=== PATIENT | male | born 1955 | race Caucasian/White ===

== ENCOUNTER → 2023-03-23 06:38 | Day surgery (SDC) | payer OTHER, SELFPAY ==
[2023-03-23 07:53] VITALS: BMI 41.2
== END | disposition home or self-care (01) ==
LOC: CATH 06:38
PROVIDERS: ATTENDING PHYSICIAN Internal Medicine Cardiovascular Disease; FAMILY PHYSICIAN Family Medicine; OTHER PHYSICIAN Internal Medicine Cardiovascular Disease
DX: I08.3 Combined rheumatic disorders of mitral, aortic and tricuspid valves (principal); Z95.3 Presence of xenogenic heart valve; I10 Essential (primary) hypertension; E78.5 Hyperlipidemia, unspecified; K21.9 Gastro-esophageal reflux disease without esophagitis; G47.33 Obstructive sleep apnea (adult) (pediatric); R06.09 Other forms of dyspnea; Z79.82 Long term (current) use of aspirin; Z79.84 Long term (current) use of oral hypoglycemic drugs
CPT/HCPCS: 93312; 93320; 93325

== ENCOUNTER → 2023-04-29 08:55 | Outpatient (REF) | payer OTHER, SELFPAY ==
[2023-04-29 09:33] LABS: Blood Urea Nitrogen 27 mg/dl (9-20); Calcium 9.2 mg/dl (8.4-10.2); Carbon Dioxide 32 mmol/L (22-30); Chloride 103 mmol/L (98-107); Glucose 108 mg/dl (70-99); Potassium 4.5 mmol/L (3.5-5.1); Sodium 140 mmol/L (135-145); eGFR > 60.00
== END ==
LOC: REG 08:55
PROVIDERS: ATTENDING PHYSICIAN Internal Medicine Cardiovascular Disease; FAMILY PHYSICIAN Family Medicine
DX: I10 Essential (primary) hypertension (principal)
CPT/HCPCS: 36415; 80048

== ENCOUNTER → 2023-06-29 16:37 | Outpatient (REF) | payer OTHER, SELFPAY ==
[2023-06-29 18:16] LABS: Blood Urea Nitrogen 34 mg/dl (9-20); Carbon Dioxide 31 mmol/L (22-30); Chloride 100 mmol/L (98-107); Glucose 77 mg/dl (70-99); Sodium 135 mmol/L (135-145); eGFR > 60.00
[2023-06-29 18:39] LABS: NT-proBNP 928 pg/ml
== END ==
LOC: REG 16:37
PROVIDERS: ATTENDING PHYSICIAN Internal Medicine Cardiovascular Disease; FAMILY PHYSICIAN Family Medicine
DX: I50.32 Chronic diastolic (congestive) heart failure (principal)
CPT/HCPCS: 36415; 80048; 83880

== ENCOUNTER 2023-07-07 09:29 | Inpatient (IN) | payer OTHER, SELFPAY ==
[2023-07-07] VITALS (17 sets, daily range): BP systolic 89–170; BP diastolic 50–87; PULSE 2–68; BMI 42.6
[2023-07-07 06:47] LABS: Hematocrit 46.4 % (39.0-52.0); Hemoglobin 15.7 g/dL (13.0-18.0); Mean Corp Hgb Conc. 33.8 g/dL (33.0-37.0); Mean Corpuscular Hgb 32.4 pg (27.0-31.0); Mean Corpuscular Volume 95.7 fL (80.0-94.0); Mean Platelet Volume 9.8 fL (7.4-10.4); Platelet Count 195 10^3/uL (130-400); Red Blood Cell Count 4.85 10^6/uL (4.70-6.10); Red Cell Dist. Width 13.4 % (11.5-14.5); White Blood Cell Count 7.4 10^3/uL (4.8-10.8)
[2023-07-07 06:50] LABS: Glucose - Point of Care 120 mg/dl (70-99)
[2023-07-07 07:00] LABS: ALT (SGPT) 42 U/L (0-50); AST (SGOT) 41 U/L (17-59); Albumin 4.6 g/dl (3.5-5.0); Alkaline Phosphatase 77 U/L (38-126); Blood Urea Nitrogen 45 mg/dl (9-20); Calcium 9.1 mg/dl (8.4-10.2); Carbon Dioxide 29 mmol/L (22-30); Chloride 100 mmol/L (98-107); Estimated Creatinine Clearance 47 ml/min; Glucose 118 mg/dl (70-99); Potassium 4.5 mmol/L (3.5-5.1); Sodium 138 mmol/L (135-145); Total Bilirubin 0.9 mg/dl (0.2-1.3); Total Protein 7.9 g/dl (6.3-8.2); eGFR > 60.00
[2023-07-07] MEDS: ASPIRIN 325 MG PO (07:21)
[2023-07-07] MEDS: NSS 359 ML IV (07:21)
--- NOTE | 2023-07-07 09:55 | PTCARENOTE ---
patient arrived from mineral ore processing labourer, right radial R band intact,distal pulse present. pacer pads remain on.IVF infusing as ordered. patient on monitor NSR,VSS.voices no c/o CP,SOB,dizziness. patient taken off o2, o2 sat 94%,bilat.LE +3 edema,able to
palpate pulses. oriented to room and surroundings.
[2023-07-07] MEDS: TOPROL XL 50 MG PO (10:40)
[2023-07-07] MEDS: TOPROL XL 25 MG PO (10:41)
[2023-07-07] MEDS: ZESTRIL 40 MG PO (10:41)
[2023-07-07] MEDS: LASIX 80 MG IV (10:42)
[2023-07-07] MEDS: FARXIGA 10 MG PO (10:45)
--- NOTE | 2023-07-07 12:12 | HPS.HSE ---
Family Physician
-
Family Physician: Solomon Key
Chief Complaint
-
Observation post elective heart catheterization
History of Present Illness
Patient is 68-year-old male with past medical history of chronic diastolic congestive heart failure, history of bicuspid valve/severe AI s/p bioprosthetic AVR, history of moderate MR status post mitral valve ring, history of effusion, obesity, ANTONIA
on BiPAP, chronic right bundle branch block, essential hypertension, hyperlipidemia, COPD was transferred to IVU for observation and diuresis over next 48 hours post elective heart catheterization. Patient have worsening stenosis of bioprosthetic
aortic valve and moderate to severe mitral stenosis and undergoing evaluation by cardiothoracic surgery for further intervention. As part of workup patient was brought in for acute left heart catheterization, procedure during measurement of LV
pressure patient had a brief episode of asystole causing procedure to be aborted. Patient ventricular pressure was not able to be measured although clinically there is concern of patient being volume overloaded. Hospitalist service were involved
for further help.
During my visit patient sitting comfortably in chair, on oxygen 2 L per nasal cannula, patient does not use oxygen at home. Patient complains of exertional shortness of breath although not have worsened from baseline. Patient was able to use
treadmill at speed of half a mile per hour for 10 minutes day before. Denies of having any episode of chest tightness/chest pain/dizziness/palpitation. Patient compliant with diet restriction and try to elevate legs in bed. Patient dry weight
trends around 260 pound and weight was noted to be 263 pounds today.
Denies of having any other abdominal/ complaints
Medical History
Past Medical History
Past Medical History: Reports Other
Additional Past Medical History:
chronic diastolic congestive heart failure, history of bicuspid valve/severe AI s/p bioprosthetic AVR, history of moderate MR status post mitral valve ring, history of effusion, obesity, ANTONIA on BiPAP, chronic right bundle branch block, essential
hypertension, hyperlipidemia, COPD
Past Surgical History: Reports Other
Social History
Tobacco: Non-smoker
Alcohol: None
Living: With Family
Family History
Family History: Not pertinent
Allergies / Home Medications
Allergies reflects when Allergies were last updated in [employer]
Home Medications with original date entered in [employer]
Allergy/Medication List:
Allergies
Allergy/AdvReac Type Severity Reaction Status Date / Time
banana Allergy Nausea Verified 07/07/23 06:18
cat dander Allergy Unknown Verified 07/07/23 06:18
horse dander Allergy Unknown Verified 07/07/23 06:18
tree and shrub pollen Allergy Unknown Verified 07/07/23 06:18
Environmental Allergy Itching Uncoded 07/07/23 06:24
GREEN GRASSY FOODS Allergy Unknown Uncoded 07/07/23 06:24
Home Medications
Al hyd-Mg tr-alg ac-sod bicarb 80 mg-14.2 mg chewable tablet (Gaviscon) 1 tab PO QIDPRN PRN gerd 02/22/23
albuterol sulfate 90 mcg/actuation aerosol inhaler (ProAir HFA) 2 puff inhalation R QIDPRN PRN sob 02/22/23
aspirin 325 mg tablet 325 mg PO DAILY 02/22/23
atorvastatin 10 mg tablet (Lipitor) 10 mg PO DAILY 02/22/23
calcium carbonate (Tums) 200 mg PO BIDPRN PRN gerd 02/22/23
fluticasone 250 mcg-salmeterol 50 mcg/dose blistr powdr for inhalation (Wixela Inhub) 1 inh inhalation R BID 02/22/23
pantoprazole 40 mg tablet,delayed release (Protonix) 40 mg PO HS 02/22/23
vitamins A,C,O-etyz-zmofgh 2,148 mcg-113 mg-45 mg-17.4 mg tablet (PreserVision AREDS) 1 tab PO BID 02/22/23
dapagliflozin propanediol 10 mg tablet (Farxiga) 10 mg PO DAILY Fluid retention/Swelling 30 days #30 tabs 02/27/23
lisinopril 40 mg tablet 40 mg PO DAILY Blood pressure #0 tabs 02/27/23
furosemide 80 mg tablet 80 mg PO QPM Fluid retention/Swelling 03/23/23
metoprolol succinate 50 mg tablet,extended release 24 hr 75 mg PO DAILY Blood pressure 03/23/23
multivitamin 1 tab PO DAILY 03/23/23
Review of Systems
-
A 12 point ROS was completed and negative except as noted: Yes
Physical Exam
Vital Signs
Vital Signs
Temp Pulse Resp BP Pulse Ox
97.7 F 84 22 100/61 88
07/07/23 11:22 07/07/23 11:30 07/07/23 11:22 07/07/23 11:30 07/07/23 11:22
Physical Exam
General: No Apparent Distress and Morbidly Obese
HEENT: Atraumatic and Oxygen
Respiratory: Clear
Cardiac: S1/S2 and Regular Rhythm; No Murmur or Rub
GI: Soft, Non Tender, Non Distended and Normal Bowel Sounds; No Organomegaly
Musculoskeletal: No Clubbing, No Cyanosis, Edema, Left Lower Extremity and Edema, Right Lower Extremity
Skin: No Rash
Neuro: Awake, Alert, Oriented and Nonfocal/grossly intact
Laboratory Results
-
07/07/23 06:41
07/07/23 06:41
Laboratory Results
Total Bilirubin 0.9 mg/dl (0.2-1.3) 07/07/23 06:41
AST 41 U/L (17-59) 07/07/23 06:41
ALT 42 U/L (0-50) 07/07/23 06:41
Alkaline Phosphatase 77 U/L (38-126) 07/07/23 06:41
Data Reviewed
-
Lab Data: Labs Reviewed by me, Discussed with Physician and Discussed with Patient
Impression/Plan
-
1.Acute on chronic diastolic congestive heart failure
Acute hypoxic respite insufficiency
-Dry weight to 260 pound, today weight 263lb , significant swelling lower extremity and likely dry weight much lower than 260 pound
-Lung examination relatively clear, with history of effusion checking chest x-ray
-Currently on 2 L oxygen through nasal cannula, wean off as possible
-Maintain on IV Lasix 80 mg twice daily, follow weight and creatinine
-Maintained on aspirin/statin/Jardiance/lisinopril
2. Brief asystole episode
-happened Intracath, discussed with cat cracker operator and recommended to start beta-shyla tomorrow morning
-monitor on telemetry
3. history of bicuspid valve/severe AI s/p bioprosthetic AVR
history of moderate MR status post mitral valve ring
Mod-sev MS
-Following up with cardiothoracic surgery outpatient for evaluation
-Intervention cardiology will discuss with CTS
4. history of pleural effusion
-f/u cxr report
5.ANTONIA on BiPAP
-Continue nighttime BiPAP with settings of 25/19
chronic right bundle branch block
essential hypertension
hyperlipidemia
COPD - no signs of flare up
DVTPPX - heparin subq
Full code
Total time spent : 76 mins
I personally saw and examined the patient.
I have reviewed all diagnostic interpretations and treatment plans as written.
Time includes patient management by me, time spent at the patients bedside, time to review lab and imaging results, discussing patient care, documentation in the medical record, and time spent with the family or caregiver and discussing care plan
with RN/Consultants.
--- NOTE | 2023-07-07 12:17 | CM ---
Reviewed chart. Met with Mr. Esteves to review discharge plans. He states prior to admission he resides alone in a two story home with three steps to enter. He states he has a full flight of steps to get to bedroom/full bathroom. He states she
has a powder room on the first floor. He states prior to admission he was independent with ambulation and adls. He states he has a bi-pap machine at home and no other DME in the home. He states he has a prescription plan and uses [facility].
We reviewed [facility]. At this time he is declining [facility]. Medical work-up in progress. The discharge plan is to return home when medically stable.
[2023-07-07] MEDS: LASIX 50 IV (14:21)
--- NOTE | 2023-07-07 14:29 | PTCARENOTE ---
started IV Lasix drip at 10mg/hr via left ant,infusing without difficulties. patient sent for chest xray,panelipse, U/S of carotids and CTchest.
--- NOTE | 2023-07-07 14:30 | CONSULT.CT ---
Consultation
-
Date/Time Consultation Requested: 07/07/23 1400
Date/Time Consultation Performed: 07/07/23 1410
Requesting Provider: Paulino BETH
Performing Provider: Serafin Reynoso MD
Reason for Consultation: Redo Valve and CABG
Patient History
Physicians
Family Physician: Shahid
Outpatient Printed Circuit Board Pcb Designer: Dr. Susanna Thurman
Inpatient Printed Circuit Board Pcb Designer: Meaghan
History of Present Illness
68 y/o male with significant pmhx for aortic valve replacement and mitral [place] [address] Gregory presented to [facility] today for a elective left heart cath. His left heart cath revealed worsening stenosis of the aortic valve and
severe mitral stenosis. During the left heart cath patient had a brief episode of asystole. Patient was initially supposed to see Dr. Reynoso in the office on Monday, however, due to was progressing valvular stenosis patient was admitted.
Prior to this admission patient was complaining of some exertional shortness of breath. He underwent a transesophageal echocardiogram in March 2023 which showed worsening stenosis of his valves. Patient normally follows Dr. Susanna Thurman.
Past Medical History
Past Medical History: Asthma, HTN, Hypercholesterolemia, SOB, Valvular Disease and Other
PVD
Pre-Dm
Macular degeneration
Past Surgical History
AVR and MVrepair with Dr. Gregory in 2012
cataracts
Dental History
last dental visit 8 months ago
Family History
Mother: at Age
Father: at Age (55)
Family Medical History: CAD
Social History
Alcohol: Occasional
Drug: None
Tobacco: Non-Smoker
Personal: Single
Living: Alone
Employment: Employed
Allergies
Allergy/AdvReac Type Severity Reaction Status Date / Time
banana Allergy Nausea Verified 07/07/23 06:18
cat dander Allergy Unknown Verified 07/07/23 06:18
horse dander Allergy Unknown Verified 07/07/23 06:18
tree and shrub pollen Allergy Unknown Verified 07/07/23 06:18
Environmental Allergy Itching Uncoded 07/07/23 06:24
GREEN GRASSY FOODS Allergy Unknown Uncoded 07/07/23 06:24
Home Medications
�Medication �Instructions �Recorded �Confirmed �Type
Al hyd-Mg tr-alg ac-sod bicarb 80 1 tab PO QIDPRN PRN gerd 02/22/23 07/07/23 History
mg-14.2 mg chewable tablet
(Gaviscon)
albuterol sulfate 90 mcg/actuation 2 puff inhalation R QIDPRN PRN sob 02/22/23 07/07/23 History
aerosol inhaler (ProAir HFA)
aspirin 325 mg tablet 325 mg PO DAILY 02/22/23 07/07/23 History
atorvastatin 10 mg tablet (Lipitor) 10 mg PO DAILY 02/22/23 07/07/23 History
calcium carbonate (Tums) 200 mg PO BIDPRN PRN gerd 02/22/23 07/07/23 History
fluticasone 250 mcg-salmeterol 50 1 inh inhalation R BID 02/22/23 07/07/23 History
mcg/dose blistr powdr for
inhalation (Wixela Inhub)
pantoprazole 40 mg tablet,delayed 40 mg PO HS 02/22/23 07/07/23 History
release (Protonix)
vitamins A,C,C-qmym-brelnw 2,148 1 tab PO BID 02/22/23 07/07/23 History
mcg-113 mg-45 mg-17.4 mg tablet
(PreserVision AREDS)
dapagliflozin propanediol 10 mg 10 mg PO DAILY Fluid 02/27/23 07/07/23 Rx
tablet (Farxiga) retention/Swelling 30 days #30 tabs
lisinopril 40 mg tablet 40 mg PO DAILY Blood pressure #0 02/27/23 07/07/23 Rx
tabs
furosemide 80 mg tablet 80 mg PO QPM Fluid 03/23/23 07/07/23 History
retention/Swelling
metoprolol succinate 50 mg 75 mg PO DAILY Blood pressure 03/23/23 07/07/23 History
tablet,extended release 24 hr
multivitamin 1 tab PO DAILY 03/23/23 07/07/23 History
Review of Systems
-
History Source: Patient
General: Reports Weight Gain and Fatigue
HEENT: Reports No Symptoms
Respiratory: Reports SOB
Cardiac: Reports Known Vascular Disease
Abdomen/GI: Reports No Symptoms
: Reports Frequency
Musculoskeletal: Reports No Symptoms
Skin: Reports No Symptoms
Neurological: Reports No Symptoms
Vascular: Reports No Symptoms
Physical Exam
Vital Signs
Temp 97.7 F 07/07/23 11:22
Temp route: Oral 07/07/23 11:22
Pulse 79 07/07/23 12:19
Rhythm: Normal sinus rhythm 07/07/23 10:20
Resp Rate 22 07/07/23 11:22
Blood pressure 96/60 07/07/23 12:19
Blood pressure extremity used: Left upper arm 07/07/23 11:22
Position: Sitting 07/07/23 11:22
MAP (cuff-Elidia Monitor) 69 07/07/23 12:19
SaO2 88 07/07/23 11:22
Oxygen Mode of Delivery Room air 07/07/23 11:22
Can the patient verbally communicate their pain? Yes 07/07/23 10:20
Actual Weight 119.7 kg 07/07/23 06:24
Body Mass Index (BMI) 42.6 07/07/23 06:24
Labs
07/07/23 06:41
Exam
General: Well Developed and Well Nourished
HEENT: Normocephalic
Respiratory: Wheezes and Crackles
Cardiac: S1/S2 and Murmur
GI: Distended and Other (obese)
Rectal: Deferred by Provider
Skin: Warm and Dry
Neuro: AO x 3 and No Motor Deficits
Extremities: Lower Level Edema and Other (darken LE skin)
Lymph: No Lymphadenopathy
Psych: Calm
Assessment / Plan
-
68-year-old male with past medical history above presented for an elective cath. Now being admitted for pre-op optimization.
#CAD
-Patient's case will be discussed with attending physician; tentative date is Tuesday July 11, [address] Reynoso
-Routine preoperative cardiothoracic surgery orders will be initiated.
-STS risk stratification score will be calculated after preoperative testing is complete
#Aortic and Mitral valve stenosis
- Continue diureses
- no repeat echo needed
- repeat CTA of C/A/P pending for monday
--- NOTE | 2023-07-07 15:03 | ITS.CL.CATH ---
Underwriting Clerks Supervisor - Catheterization
Cardiac Catheterization
Procedure Report:
LEFT AND RIGHT HEART CATHETERIZATION
Date of Procedure: July 07, 2023
Referring: Susanna Thurman MD
PROCEDURES:
1. Left heart catheterization, coronary angiogram.
2. Right heart catheterization.
3. Ultrasound-guided access
INDICATION: Patient is a 68-year-old gentleman with past medical history of bicuspid aortic stenosis status post bioprosthetic AVR and mitral valve repair in 2012, hypertension, hyperlipidemia, morbid obesity, asthma, macular degeneration, ANTONIA,
COPD, hepatic steatosis, chronic heart failure with preserved ejection fraction, coronary artery disease, type 2 diabetes mellitus who presents today for left and right heart catheterization in the setting of moderate to severe bioprosthetic aortic
stenosis and moderate to severe mitral stenosis with up titration of diuretics as an outpatient with ongoing dyspnea on exertion
ACCESS:
1. Right radial artery, 6 Armenian sheath, under ultrasound guidance.
2. Right brachial vein, 6 Armenian sheath, under ultrasound guidance
HEMODYNAMICS : (mmHg)
RA (m) : 29
RV (s/d,m) : 75/25, 29
PA (s/d, m) : 78/47, 60
PCWP (m) : 39
PA saturation: 62.2% on room air
AO saturation: 87.3% on room air
RA saturation: 63.3% on room air
Cardiac Output : 5.62 L/min
Cardiac Index : 2.5 L/min/m-2
Systemic vascular resistance: 939 dsc^(-5)
Pulmonary vascular resistance: 3.73 hayden unit
RADIATION SUMMARY: Fluoro Time (min): 14.5, Dose (mGy): 831, DAP (Gy.cm2) : 62
AO (s/d) : 116/79
Of note, the right coronary artery diagnostic catheter happened to fall into the LV and while flushing the catheter to get LV pressure, patient had sudden complete heart block with a string of P waves and very rare ventricular escape's. He broke
out of it after a few seconds.
CORONARY FINDINGS
DOMINANCE: Right
LEFT MAIN: The left main is cloacal in origin with essentially separate ostia for the LAD and the left circumflex artery.
LEFT ANTERIOR DESCENDING: The left anterior descending artery is a medium to large caliber vessel which gives rise to 1 major diagonal branch. There is an eccentric 80% stenosis in the mid LAD
CIRCUMFLEX: The left circumflex artery is a large-caliber vessel which gives rise to 2 major obtuse marginal branches. There is mild diffuse atherosclerotic plaque
RIGHT CORONARY ARTERY: The right coronary artery is a medium caliber, dominant vessel which gives rise to the right posterior descending artery and the right posterolateral system. There is mild pressure dampening and ventricularization upon
engagement with a 6 Armenian 3 DRC diagnostic catheter after failing with a JR4 diagnostic catheter. There is a eccentric 70% ostial RCA stenosis with diffuse tubular up to 50% stenosis in the mid RCA.
SEDATION: 38 minutes of procedural sedation was utilized. An independent medical collections was present to assist with and help manage the patient's level of consciousness and physiologic status.
RADIATION SUMMARY: Fluoro Time (min): 14.5, Dose (mGy): 831, DAP (Gy.cm2) : 61.1
Closure Device: Vascular annular right radial artery, 11 cc of air
CONCLUSIONS
1. Significantly elevated right and left-sided filling pressures with normal cardiac output and normal systemic vascular resistance. Severe pulmonary hypertension is noted.
2. Left main appears to be cloacal in origin with separate ostium for the LAD and left circumflex arteries. Eccentric 80% stenosis in the mid LAD.
3. Eccentric 70% ostial RCA stenosis with diffuse tubular up to 50% stenosis in the mid RCA.
4. Of note, the right coronary artery diagnostic catheter happened to fall into the LV and while flushing the catheter to get LV pressure, patient had sudden complete heart block in setting of baseline right bundle branch block with a string of P
waves and very rare ventricular escape's. He broke out of it after a few seconds.
RECOMMENDATIONS
1. Would hold his beta-shyla for the next 24 hours and if continues to remain stable without evidence of any recurrent heart block, with plan to resume it.
2. Aggressive IV diuresis for the next [address] surgery consult for possible preappointment in double valve replacement and consideration for two-vessel CABG with bypasses to LAD and distal RCA. Discussed with Dr. Jonnie Reynoso.
Copy to: Susanna Thurman MD
Francine Clark MD, FAC, [facility]
--- NOTE | 2023-07-07 16:18 | CM ---
Reviewed chart. Met with Mr. Hassan to review discharge plans. Prior to admission he resides alone in a two story home with three steps to enter. He states he has a full flight of steps to get to bedroom/full bathroom. He has a powder room on
the first floor. He states prior to admission he was independent with ambulation and adls. He states he has a bi-pap machine at home and no other DME in the home. He has a prescription plan and uses [facility]. He states his family is
supportive and will be able to assist if needed. His brother Jovanny resides close by. His sister resides in [place] and does come up to see him. Medical work-up in progress. The discharge plan is to return home with family support and a home
visit by the Cardiothoracic Transitional Care Nurse when medically stable.
We reviewed pre-op and post-op routines. We briefly reviewed the shower instructions. We also reviewed restrictions including sternal precautions and driving restrictions. We also discussed a home visit by the Cardiothoracic Transitional Care
Nurse. He is agreeable to a home visit. The plan is for AVR/MVR and CABG on Tuesday, July 11, 2023.
[2023-07-07] MEDS: LIPITOR 40 MG PO (17:39)
[2023-07-07] MEDS: TYLENOL 650 MG PO (17:42)
--- NOTE | 2023-07-07 17:47 | W.PN.UPDATE ---
Update Note
Progress Note Update
Procedure Type:�CABG + AVR
PERIOPERATIVE OUTCOME ESTIMATE %
Operative Mortality 5.92%
Morbidity & Mortality 21.8%
Stroke 1.28%
Renal Failure 5.32%
Reoperation 5.96%
Prolonged Ventilation 17.4%
Deep Sternal Wound Infection 0.453%
Long Hospital Stay (>14 days) 11.7%
Short Hospital Stay (<6 days)* 25.3%
Clinical Summary
Planned Surgery: CABG + AVR, Urgent, ReOp#1 cardiovascular surgery
Demographics: 68 year old, White, male, 120kg, 168cm, BMI: 42.5 kg/m�
Lab Values: Creatinine: 1.2 mg/dL, Hematocrit: 46.4%, WBC Count: 7.4 10�/�L, Platelet Count: 274797 cells/�L
Substance Abuse: Never smoker, Alcohol use: <=1 drink/week
Risk Factors / Comorbidities: Hypertension, Family Hx of CAD
Pulmonary RF: Mild CLD
Coronary Artery Disease: 2 vessels diseased, No coronary symptoms
Valve Disease: Aortic Stenosis, Mild AR, Mitral Stenosis, Moderate MR, Moderate TR
Prev. Cardiac Interv:
There is no STS calculation for redo AVR/MVR/ CABG. This is an estimated calculation.
--- NOTE | 2023-07-07 17:50 | PTCARENOTE ---
patient c/o tenderness at right brachial and right radial site. right brachial site edematous,tender to touch has bounding pulse. Tylenol po given as ordered.
[2023-07-07 20:16] LABS: Blood Urea Nitrogen 43 mg/dl (9-20); Calcium 8.9 mg/dl (8.4-10.2); Carbon Dioxide 28 mmol/L (22-30); Chloride 99 mmol/L (98-107); Estimated Creatinine Clearance 68 ml/min; Glucose 176 mg/dl (70-99); Potassium 4.2 mmol/L (3.5-5.1); Sodium 136 mmol/L (135-145); eGFR > 60.00
[2023-07-07] MEDS: ADVAIR HFA 115/21 MCG INHALER 2 PUFF INH (20:43)
--- NOTE | 2023-07-07 22:05 | PTCARENOTE ---
IV Lasix drip stopped at 2000 per order.
[2023-07-07] MEDS: PROTONIX 40 MG PO (22:31)
[2023-07-08] VITALS (7 sets, daily range): BP systolic 99–119; BP diastolic 46–92; PULSE 2–70; BMI 42.0
--- NOTE | 2023-07-08 00:46 | PTCARENOTE ---
OOB in the chair during the evening. Some tenderness in the right brachial cath site upon palpation. Sleeping at present.
[2023-07-08 05:14] LABS: Hematocrit 43.8 % (39.0-52.0); Hemoglobin 15.1 g/dL (13.0-18.0); Mean Corp Hgb Conc. 34.5 g/dL (33.0-37.0); Mean Corpuscular Hgb 32.8 pg (27.0-31.0); Mean Corpuscular Volume 95.2 fL (80.0-94.0); Mean Platelet Volume 9.8 fL (7.4-10.4); Platelet Count 154 10^3/uL (130-400); Red Cell Dist. Width 13.6 % (11.5-14.5); White Blood Cell Count 6.9 10^3/uL (4.8-10.8)
[2023-07-08 05:26] LABS: INR 1.13; PT 14.3 Sec (11.4-14.6)
[2023-07-08 05:27] LABS: APTT 31.2 Sec (23.4-35.0)
[2023-07-08 05:40] LABS: ALT (SGPT) 29 U/L (0-50); AST (SGOT) 32 U/L (17-59); Albumin 3.8 g/dl (3.5-5.0); Alkaline Phosphatase 72 U/L (38-126); Blood Urea Nitrogen 38 mg/dl (9-20); Calcium 8.7 mg/dl (8.4-10.2); Carbon Dioxide 29 mmol/L (22-30); Chloride 99 mmol/L (98-107); Direct Bilirubin 0.5 mg/dl (0.0-0.4); Estimated Creatinine Clearance 68 ml/min; Glucose 118 mg/dl (70-99); HDL Cholesterol 37 mg/dl; LDL Cholesterol, Calculated 79 mg/dl; Magnesium 2.3 mg/dl (1.6-2.3); Sodium 137 mmol/L (135-145); Total Bilirubin 1.1 mg/dl (0.2-1.3); Total Cholesterol 135 mg/dl (50-199); Total Protein 6.6 g/dl (6.3-8.2); Triglyceride 99 mg/dl (10-149); Very Low Density Lipoprotein 19 mg/dl (0-30); eGFR > 60.00
[2023-07-08] MEDS: LASIX 50 IV (07:52)
--- NOTE | 2023-07-08 08:23 | W.PN.CARDCBS ---
Addendum entered and electronically signed by Fran Goodwin DO 07/08/23 11:20:
I saw and examined the patient.
The Rn Labor Delivery's note was reviewed and I agree with the note.
Comment:
Plan:
IV lasix drip for diuresis as per CT surgery.
Monitor Is and Os and daily wts and cr
Transient heart block with cath, Toprol resumed and monitor for heart block.
Plan for redo AVR and redo MVR with CABG July [address] Reynoso
Original Note:
Today's Communication / Plan
-
Continue aggressive IV diuresis, now on IV Lasix drip
Monitor renal function electrolytes
Daily weights
Anticipated redo AVR/redo MVR/CABG 07/11/2023
Impression / Plan
-
PCP: Dr. Key
Cardiology: Dr. Susanna Thurman
Pulm: Dr. Logan
Impression:
Presented 07/07/2023 for elective right and left heart catheterization
Multivessel coronary artery disease
Aortic and mitral stenosis, moderate to severe
Acute on chronic heart failure with preserved ejection fraction
Chronic heart failure with preserved ejection fraction
Hypertension
Hyperlipidemia
Type 2 diabetes
s/p tissue AVR for severe and bicuspid AV 05/22/12
s/p MV ring repair for moderate MR 05/22/12
Mild to moderate LVH with mid cavitary gradient by echo 07/22/22
Moderate right and small left pleural effusions by CT 02/22/23
Right pleural effusion, s/p Rt thoracentesis 02/23/23
Fatty liver
ANTONIA
Chronic RBBB
Asthma/COPD
Obesity
Macular degeneration
Cardiac catheterization 07/07/2023: LM: cloacal in origin with essentially separate ostia for the LAD and the left circumflex artery. LAD: 80% mid stenosis. LCX: Diffuse plaque. RCA: 70% ostial with diffuse 50% mid stenosis.
RA (m) : 29; RV (s/d,m) : 75/25, 29; PA (s/d, m) : 78/47, 60; PCWP (m) : 39; PA saturation: 62.2% on room air; AO saturation: 87.3% on room air; RA saturation: 63.3% on room air; Cardiac Output : 5.62 L/min; Cardiac Index : 2.5 L/min/m-2; Systemic
vascular resistance: 939 dsc^(-5); Pulmonary vascular resistance: 3.73 hayden unit
Exercise mibi 01/23/23: Completed 3:06 min Jak protocol and reached 98% MPHR, poor exercise tolerance, perfusion is normal with no fixed or reversible defects seen, EF 61%
Echo 07/22/22: EF 70 to 75%, mild to moderate concentric LVH with a hyperdynamic LV and a LV mid cavitary gradient increasing to peak of 42 mmHg Valsalva maneuver, mild MR, mitral valve repair with peak/mean gradients 29/18 mmHg, tissue AVR in place
with peak/mean gradients 36/22 mmHg, mild TR, compared to previous echo 03/11/2021 the LV appears more hyperdynamic with a new mid cavitary gradient seen with Valsalva and the mean aortic valve gradient was previously 15 mmHg and is now 22 mmHg,
similarly the gradient across the mitral valve had increased from previously 11 to now 18
Echo 02/22/23: EF 70-75%, LV small in size, severe conc LVH with hyperdynamic LV systolic function, no significant LVOT gradient. Normal RV size with increased RV wall thickness and low normal RV systolic function, s/p MV repair with 26 mm
annuloplasty ring and peak/mean gradients 28/16 mmHg, mild MR, s/p #23 bovine AVR peak/mean gradients 50/36 mmHg, aortic valve dimensionless index is 0.4.�Compared to previous echo 07/22/22, the aortic valve gradient has increased from 22-36mmHg and
the PA pressures increased from 42 to 65 mmHg.
CHARLEEN 03/23/2023: EF 70%, moderate concentric LVH, moderately dilated left atrium mildly dilated right atrium. Moderate to severe mitral stenosis with mild to moderate regurgitation. Bioprosthetic aortic valve with mean gradient 34 suggesting moderate
to severe aortic stenosis with mild aortic regurgitation. Mild to moderate tricuspid regurgitation
Carotid Doppler 07/07/2023: No significant bilateral ICA stenosis, less than 50%
Plan:
Acute on chronic heart failure with preserved ejection fraction
Status post cardiac catheterization 07/07/2023 noted to have significantly elevated right and left filling pressures with normal cardiac output and normal systemic vascular resistance.
-Continue aggressive IV diuresis was initially getting Lasix 80 mg IV twice daily. Transition to IV Lasix drip 07/07/2023 by CTS with good diuretic response. However still appears to be volume overloaded
-Continue to monitor and trend renal function and electrolytes, creatinine stable at 1.3.
During cath right coronary artery diagnostic catheter happened to fall into the LV and while flushing the catheter to get LV pressure, patient had sudden complete heart block in setting of baseline right bundle branch block with a string of P waves
and very rare ventricular escape's. He broke out of it after a few seconds. Beta-shyla placed on hold for 24 hours. No evidence of pauses or heart block noted upon review of telemetry 07/08/2023. Would resume metoprolol 75 mg daily.
Patient noted to have moderate to severe aortic and mitral stenosis with RCA disease as well as mid LAD disease. CT surgery consulted for CABG/redo AVR/redo MVR with Dr. Reynoso anticipated 07/11/2023. Work-up in progress
Coronary artery disease
-Continue aggressive medical management with aspirin, beta-shyla, ZAYNAB inhibitor, statin
-Lipids 07/08/2023 TC 135, HDL 37, LDL 79, triglycerides 99. Lipids are not at goal. Will intensify atorvastatin to 40 mg daily
HPI 07/07/2023:
Patient is a 68-year-old gentleman with past medical history of bicuspid aortic stenosis status post bioprosthetic AVR and mitral valve repair in 2012, hypertension, hyperlipidemia, morbid obesity, asthma, macular degeneration, ANTONIA, COPD, hepatic
steatosis, chronic heart failure with preserved ejection fraction, coronary artery disease, type 2 diabetes mellitus who presents today for left and right heart catheterization in the setting of moderate to severe bioprosthetic aortic stenosis and
moderate to severe mitral stenosis with up titration of diuretics as an outpatient with ongoing dyspnea on exertion
Progress Note - Mechanic Senior
Subjective
Date of Service: July 08, 2023
Patient seen and examined. Patient sitting up in chair. Reports that he slept well last night without orthopnea or PND. Still has bilateral lower extremity edema
Objective
Labs:
07/08/23 05:03
Labs
Hgb 15.1 g/dL (13.0-18.0) 07/08/23 05:03
Hct 43.8 % (39.0-52.0) 07/08/23 05:03
Plt Count 154 10^3/uL (130-400) D 07/08/23 05:03
PT 14.3 Sec (11.4-14.6) 07/08/23 05:03
INR 1.13 07/08/23 05:03
APTT 31.2 Sec (23.4-35.0) 07/08/23 05:03
Sodium 137 mmol/L (135-145) 07/08/23 05:03
Potassium 4.0 mmol/L (3.5-5.1) 07/08/23 05:03
BUN 38 mg/dl (9-20) H 07/08/23 05:03
Creatinine 1.3 mg/dL (0.7-1.3) 07/08/23 05:03
Glucose 118 mg/dl (70-99) H 07/08/23 05:03
Vital Signs and I&O:
Vital Signs
Temp Pulse Resp BP Pulse Ox
97.8 F 71 18 103/61 97
07/08/23 08:09 07/08/23 08:09 07/08/23 08:09 07/08/23 04:52 07/08/23 08:09
Vital Signs
Temp Pulse Resp BP Pulse Ox
97.8 F 71 18 103/61 97
07/08/23 08:09 07/08/23 08:09 07/08/23 08:09 07/08/23 04:52 07/08/23 08:09
Intake & Output
07/06/23 07/07/23 07/08/23 07/09/23
06:59 06:59 06:59 06:59
Intake Total 363.5 / 363.5
Output Total 4450 / 4450
Balance -4086.5 / -4086.5
Physical Exam
Physical Exam
GEN: No distress, awake, Ox3, sitting up in chair
HEENT: supple, anicteric, mmm
LUNGS: CTA, no wheezes/rales
CV: Reg, S1/S2, 2/6 syst murmur
ABD: soft, BS+, NT/ND
EXT: +2 edema Lt>Rt
NEURO: Gross non-focal
SKIN: No rash, warm, dry, pink
[2023-07-08] MEDS: TOPROL XL 25 MG PO (08:25)
[2023-07-08] MEDS: FARXIGA 10 MG PO (08:25)
[2023-07-08] MEDS: ASPIRIN 325 MG PO (08:25)
[2023-07-08] MEDS: TOPROL XL 50 MG PO (08:26)
[2023-07-08] MEDS: ZESTRIL 40 MG PO (08:26)
--- NOTE | 2023-07-08 08:51 | W.PN.HOSP.TC ---
Today's Communication/Plan
-
lasix drip per cards/cts
f/u weight/bmp
Assessment / Plan
Assessment / Plan
1.Acute on chronic diastolic congestive heart failure
Acute hypoxic respite insufficiency -resolved
-Dry weight to 260 pound, today weight 263lb , significant swelling lower extremity and likely dry weight much lower than 260 pound
-off of o2 currently
-transitioned to lasix drip by cards/CTS, cr stable, f/u weight/cr
-Maintained on aspirin/statin/Jardiance/lisinopril
2. Brief asystole episode
-happened Intracath, discussed with cotton factor and recommended to start beta-shyla tomorrow morning
-monitor on telemetry
3. history of bicuspid valve/severe AI s/p bioprosthetic AVR
history of moderate MR status post mitral valve ring
Mod-sev MS
-Following up with cardiothoracic surgery outpatient for evaluation
-Intervention cardiology will discuss with CTS
-Got Orthopantogram/CT chest and cartoid doppler.
4. history of pleural effusion
-CT chest ruled out any effusion
5.ANTONIA on BiPAP
-Continue nighttime BiPAP with settings of 25/19
chronic right bundle branch block
essential hypertension
hyperlipidemia
COPD - no signs of flare up
DVTPPX - heparin subq
Full code
Case discussed with cardiology
Anticipated Discharge: > 48 hours
Subjective/Interval History
-
Date of Service: July 08, 2023
resting comfortable in chair
not on o2
no chest pain/shortness breath
Objective Data
-
Labs:
Laboratory Results
07/08/23 07/08/23
05:03 13:00
WBC 6.9
Hgb 15.1
Hct 43.8
Plt Count 154 D
PT 14.3
INR 1.13
APTT 31.2
Sodium 137 Pending
Potassium 4.0 Pending
Chloride 99 Pending
Carbon Dioxide 29 Pending
BUN 38 H Pending
Creatinine 1.3 Pending
Glucose 118 H Pending
Calcium 8.7 Pending
Total Bilirubin 1.1
AST 32
ALT 29
Alkaline Phosphatase 72
Vital Signs:
Vital Signs
Temp Pulse Resp BP Pulse Ox
97.8 F 77 18 119/92 97
07/08/23 08:09 07/08/23 08:25 07/08/23 08:09 07/08/23 08:25 07/08/23 08:09
I&O
07/07/23 07/08/23 07/09/23
06:59 06:59 06:59
Intake Total 363.5 / 363.5
Output Total 4450 / 4450
Balance -4086.5 / -4086.5
Review of Systems
-
Respiratory: Reports No Symptoms
Cardiac: Reports No Symptoms
Abdomen/GI: Reports No Symptoms
Physical Exam
-
General: Morbidly Obese
HEENT: Negative Oxygen
Respiratory: Clear to Auscultation
Cardiac: Regular Rhythm and S1/S2; Negative Murmur, Rub or Gallop
GI: Soft, Nontender and Nondistended; Negative Organomegaly
Musculoskeletal: Edema, Right Lower Extrem and Edema, Left Lower Extrem
Skin: Warm; Negative Rash
Neuro: Awake, Alert, Oriented, AO x 3 and Nonfocal/Grossly Intact
Psych: Calm
--- NOTE | 2023-07-08 09:17 | W.PN.CT ---
Today's Communication / Plan
-
- Continue pre-operative work up
- Tentative surgery date Tuesday July 11, 2023
- Continue diureses plan
>>Lasix gtt 10mg/hr x12 hrs
>>repeat BMP later today
Assessment / Plan
-
#CAD
#Severe aortic stenosis
#Severe Mitral stenosis
#Fluid Overload
Subjective
-
Date of Service: July 08, 2023
Objective Data
-
Lab Results
07/08/23 05:03
PT 14.3 Sec (11.4-14.6) 07/08/23 05:03
INR 1.13 07/08/23 05:03
APTT 31.2 Sec (23.4-35.0) 07/08/23 05:03
Vital Signs
Vital Signs
Temp Pulse Resp BP Pulse Ox
97.8 F 77 18 119/92 97
07/08/23 08:09 07/08/23 08:25 07/08/23 08:09 07/08/23 08:25 07/08/23 08:09
CT Intake/Output/Weight
07/07/23 07/08/23 07/08/23
18:59 06:59 18:59
Intake Total 363.5 / 363.5
Output Total 3450 / 4450 1000 / 4450 700 / 700
Balance -3086.5 / -4086.5 -1000 / -4086.5 -700 / -700
SaO2: 97
Data Reviewed
-
Lab Results: Results Reviewed
Medications: Active Meds Reviewed
Chest X-Ray: Report Reviewed
CT Scan: Report Reviewed
[2023-07-08 09:50] LABS: Glycohemoglobin (HgbA1c) 5.9 % (4.0-5.6)
[2023-07-08] MEDS: ADVAIR HFA 115/21 MCG INHALER 2 PUFF INH ×2 (12:20→19:57)
[2023-07-08 14:01] LABS: Blood Urea Nitrogen 35 mg/dl (9-20); Carbon Dioxide 26 mmol/L (22-30); Chloride 101 mmol/L (98-107); Estimated Creatinine Clearance 59 ml/min; Glucose 127 mg/dl (70-99); Potassium 4.2 mmol/L (3.5-5.1); Sodium 139 mmol/L (135-145); eGFR 51.03
[2023-07-08] MEDS: FLEXBUMIN 100 IV (17:24)
[2023-07-08] MEDS: LIPITOR 40 MG PO (17:32)
--- NOTE | 2023-07-08 21:57 | PTCARENOTE ---
Pt rec'd oob in recliner chair. Albumin infusion completed just after shift change. IV Lasix discontinued at 8pm per order. Pt then showered without difficulty. Denies sob or discomfort. Sinus with BBB.
[2023-07-08] MEDS: PROTONIX 40 MG PO (22:51)
--- NOTE | 2023-07-08 23:12 | PTCARENOTE ---
Pt with little bit of mucous starting after hs snack. cleared at this time.
[2023-07-09] VITALS (7 sets, daily range): BP systolic 92–126; BP diastolic 52–76; PULSE 2–75; BMI 41.9
--- NOTE | 2023-07-09 05:35 | PTCARENOTE ---
Pt reports having slept well on Bipap machine. awoken at 0515 for am labs ,VS and wt. Sinus with BBB on telemetry.
[2023-07-09 05:40] LABS: Hematocrit 42.4 % (39.0-52.0); Hemoglobin 14.7 g/dL (13.0-18.0); Mean Corp Hgb Conc. 34.7 g/dL (33.0-37.0); Mean Corpuscular Hgb 32.6 pg (27.0-31.0); Mean Platelet Volume 9.6 fL (7.4-10.4); Platelet Count 158 10^3/uL (130-400); Red Blood Cell Count 4.51 10^6/uL (4.70-6.10); Red Cell Dist. Width 13.6 % (11.5-14.5); White Blood Cell Count 7.7 10^3/uL (4.8-10.8)
[2023-07-09 05:54] LABS: Blood Urea Nitrogen 38 mg/dl (9-20); Calcium 8.9 mg/dl (8.4-10.2); Carbon Dioxide 27 mmol/L (22-30); Chloride 101 mmol/L (98-107); Estimated Creatinine Clearance 55 ml/min; Glucose 121 mg/dl (70-99); Magnesium 2.4 mg/dl (1.6-2.3); Potassium 4.1 mmol/L (3.5-5.1); Sodium 137 mmol/L (135-145); eGFR 47.23
[2023-07-09] MEDS: ASPIRIN 325 MG PO (07:58)
[2023-07-09] MEDS: TOPROL XL 25 MG PO (07:58)
[2023-07-09] MEDS: FARXIGA 10 MG PO (07:58)
[2023-07-09] MEDS: TOPROL XL 50 MG PO (07:58)
[2023-07-09] MEDS: ZESTRIL 40 MG PO (07:59)
--- NOTE | 2023-07-09 08:04 | W.PN.CT ---
Addendum entered and electronically signed by Geoffrey Salas MD 07/09/23 08:33:
I saw and examined the patient.
The PA's note was reviewed and I agree with the note.
Comment:
Creat trending up today (1.6 from 1.5, baseline 1.2) - hold diuresis today
Check CTA-C/A/P today for preoperative planning
Possible OR on Monday for redo-AVR/MVR/CABG
Original Note:
Today's Communication / Plan
-
- Cr trending up; will hold diureses today and repeat BMP tomorrow
- continue daily weights
- CTA C/A/P today
- PFTs and LE US pending
Assessment / Plan
-
#CAD
#Severe aortic stenosis
#Severe Mitral stenosis
#Fluid Overload
Discussed patient care with: Cardiology and Nursing
Subjective
Procedure
68 y/o M with PMHx significant for and MS s/p AVR and MVr in 2012 presented for an elective cath and found to be in fluid overload. Admitted for surgical optimization.
-
Date of Service: July 09, 2023
Objective Data
-
Lab Results
07/09/23 05:26
07/09/23 05:26
PT 14.3 Sec (11.4-14.6) 07/08/23 05:03
INR 1.13 07/08/23 05:03
APTT 31.2 Sec (23.4-35.0) 07/08/23 05:03
Vital Signs
Vital Signs
Temp Pulse Resp BP Pulse Ox
98.9 F 74 20 119/76 96
07/09/23 07:21 07/09/23 07:58 07/09/23 07:21 07/09/23 07:58 07/09/23 07:21
CT Intake/Output/Weight
07/08/23 07/09/23 07/09/23
18:59 06:59 18:59
Intake Total 470 / 712 242 / 712
Output Total 2150 / 2500 350 / 2500
Balance -1680 / -1788 -108 / -1788
SaO2: 96
Physical Exam
-
General: AOx3
Cardiovascular: Regular rate & rhythm
Respiratory: Rales (Fine ) and Decreased Breath Sounds
Extremities: Edema +2
[2023-07-09] MEDS: ADVAIR HFA 115/21 MCG INHALER 2 PUFF INH ×2 (09:35→18:06)
[2023-07-09] MEDS: NSS 250 IV (10:59)
--- NOTE | 2023-07-09 11:53 | W.PN.HOSP.TC ---
Today's Communication/Plan
-
see note
Assessment / Plan
Assessment / Plan
1.Acute on chronic diastolic congestive heart failure
Acute hypoxic respite insufficiency -resolved
-Dry weight to 260 pound, today weight 263lb , significant swelling lower extremity and likely dry weight much lower than 260 pound
-off of o2 currently
-hold lasix drip for now.
-Maintained on aspirin/statin/Jardiance
2. Brief asystole episode
-happened Intracath, discussed with golf instructor and recommended to start beta-shyla tomorrow morning
-monitor on telemetry
3. ABHIJEET
-From IV diuresis. Lasix drip on hold
-Follow-up renal function
-Lisnopril held.
-CTS ordered CTA abdomen pelvis in the morning today. High risk for DEENA with new ABHIJEET.
4. history of bicuspid valve/severe AI s/p bioprosthetic AVR
history of moderate MR status post mitral valve ring
Mod-sev MS
-Following up with cardiothoracic surgery outpatient for evaluation
-Intervention cardiology will discuss with CTS
-Got Orthopantogram/CT chest and carotid Doppler.
-Patient planned to go to OR monday
4. history of pleural effusion
-CT chest ruled out any effusion
5.ANTONIA on BiPAP
-Continue nighttime BiPAP with settings of
chronic right bundle branch block
essential hypertension
hyperlipidemia
COPD - no signs of flare up
DVTPPX - heparin subq
Full code
Anticipated Discharge: > 48 hours
Subjective/Interval History
-
Date of Service: July 09, 2023
No complaints overnight
Objective Data
-
Labs:
Laboratory Results
07/09/23 07/09/23
05:26 16:00
WBC 7.7
Hgb 14.7
Hct 42.4
Plt Count 158
Sodium 137 Pending
Potassium 4.1 Pending
Chloride 101 Pending
Carbon Dioxide 27 Pending
BUN 38 H Pending
Creatinine 1.6 H Pending
Glucose 121 H Pending
Calcium 8.9 Pending
Vital Signs:
Vital Signs
Temp Pulse Resp BP Pulse Ox
98.9 F 73 16 119/76 96
07/09/23 07:21 07/09/23 11:00 07/09/23 09:48 07/09/23 07:58 07/09/23 08:09
I&O
07/08/23 07/09/23 07/10/23
06:59 06:59 06:59
Intake Total 363.5 / 363.5 712 / 712 240 / 240
Output Total 4450 / 4450 2500 / 2500 1000 / 1000
Balance -4086.5 / -4086.5 -1788 / -1788 -760 / -760
Review of Systems
-
Respiratory: Reports No Symptoms
Cardiac: Reports No Symptoms
Abdomen/GI: Reports No Symptoms
Physical Exam
-
General: Morbidly Obese
HEENT: Negative Oxygen
Respiratory: Clear to Auscultation
Cardiac: Regular Rhythm and S1/S2; Negative Murmur, Rub or Gallop
GI: Soft, Nontender and Nondistended; Negative Organomegaly
Musculoskeletal: Edema, Right Lower Extrem and Edema, Left Lower Extrem
Skin: Warm; Negative Rash
Neuro: Awake, Alert, Oriented, AO x 3 and Nonfocal/Grossly Intact
Psych: Calm
--- NOTE | 2023-07-09 12:04 | W.PN.CARDCBS ---
Today's Communication / Plan
-
Now off IV Lasix drip started by CT surgery. Creatinine rising to 1.6 on 07/09/2023. Repeat pending
-cardiac catheterization 07/07/2023 noted to have significantly elevated right and left filling pressures with normal cardiac output and normal systemic vascular resistance.
Monitor Is and Os and daily wts and cr
Transient heart block with cath, no recurrent heart block. Continue Toprol
Plan for redo AVR and redo MVR with CABG July [address] Reynoso
Continue aggressive medical management with aspirin, beta-shyla, ZAYNAB inhibitor, statin
Lipids 07/08/2023 TC 135, HDL 37, LDL 79, triglycerides 99. Lipids are not at goal. Atorvastatin increased to 40 mg daily
Impression / Plan
-
.
PCP: Dr. Key
Cardiology: Dr. Susanna Thurman
Pulm: Dr. Logan
Impression:
Presented 07/07/2023 for elective right and left heart catheterization
Multivessel coronary artery disease
Aortic and mitral stenosis, moderate to severe
Acute on chronic heart failure with preserved ejection fraction
Acute renal insufficiency
Hypertension
Hyperlipidemia
Type 2 diabetes
s/p tissue AVR for severe and bicuspid AV 05/22/12
s/p MV ring repair for moderate MR 05/22/12
Mild to moderate LVH with mid cavitary gradient by echo 07/22/22
Moderate right and small left pleural effusions by CT 02/22/23
Right pleural effusion, s/p Rt thoracentesis 02/23/23
Fatty liver
ANTONIA
Chronic RBBB
Asthma/COPD
Obesity
Macular degeneration
Cardiac catheterization 07/07/2023: LM: cloacal in origin with essentially separate ostia for the LAD and the left circumflex artery. LAD: 80% mid stenosis. LCX: Diffuse plaque. RCA: 70% ostial with diffuse 50% mid stenosis.
RA (m) : 29; RV (s/d,m) : 75/25, 29; PA (s/d, m) : 78/47, 60; PCWP (m) : 39; PA saturation: 62.2% on room air; AO saturation: 87.3% on room air; RA saturation: 63.3% on room air; Cardiac Output : 5.62 L/min; Cardiac Index : 2.5 L/min/m-2; Systemic
vascular resistance: 939 dsc^(-5); Pulmonary vascular resistance: 3.73 hayden unit
Exercise mibi 01/23/23: Completed 3:06 min Jak protocol and reached 98% MPHR, poor exercise tolerance, perfusion is normal with no fixed or reversible defects seen, EF 61%
Echo 07/22/22: EF 70 to 75%, mild to moderate concentric LVH with a hyperdynamic LV and a LV mid cavitary gradient increasing to peak of 42 mmHg Valsalva maneuver, mild MR, mitral valve repair with peak/mean gradients 29/18 mmHg, tissue AVR in place
with peak/mean gradients 36/22 mmHg, mild TR, compared to previous echo 03/11/2021 the LV appears more hyperdynamic with a new mid cavitary gradient seen with Valsalva and the mean aortic valve gradient was previously 15 mmHg and is now 22 mmHg,
similarly the gradient across the mitral valve had increased from previously 11 to now 18
Echo 02/22/23: EF 70-75%, LV small in size, severe conc LVH with hyperdynamic LV systolic function, no significant LVOT gradient. Normal RV size with increased RV wall thickness and low normal RV systolic function, s/p MV repair with 26 mm
annuloplasty ring and peak/mean gradients 28/16 mmHg, mild MR, s/p #23 bovine AVR peak/mean gradients 50/36 mmHg, aortic valve dimensionless index is 0.4.�Compared to previous echo 07/22/22, the aortic valve gradient has increased from 22-36mmHg and
the PA pressures increased from 42 to 65 mmHg.
CHARLEEN 03/23/2023: EF 70%, moderate concentric LVH, moderately dilated left atrium mildly dilated right atrium. Moderate to severe mitral stenosis with mild to moderate regurgitation. Bioprosthetic aortic valve with mean gradient 34 suggesting moderate
to severe aortic stenosis with mild aortic regurgitation. Mild to moderate tricuspid regurgitation
Carotid Doppler 07/07/2023: No significant bilateral ICA stenosis, less than 50%
Plan:
Now off IV Lasix drip started by CT surgery. Creatinine rising to 1.6 on 07/09/2023. Repeat pending
-cardiac catheterization 07/07/2023 noted to have significantly elevated right and left filling pressures with normal cardiac output and normal systemic vascular resistance.
Monitor Is and Os and daily wts and cr
Transient heart block with cath, no recurrent heart block. Continue Toprol
Plan for redo AVR and redo MVR with CABG July [address] Reynoso
Continue aggressive medical management with aspirin, beta-shyla, ZAYNAB inhibitor, statin
Lipids 07/08/2023 TC 135, HDL 37, LDL 79, triglycerides 99. Lipids are not at goal. Atorvastatin increased to 40 mg daily
Discussed with pt and family at bedside.
HPI 07/07/2023:
Patient is a 68-year-old gentleman with past medical history of bicuspid aortic stenosis status post bioprosthetic AVR and mitral valve repair in 2012, hypertension, hyperlipidemia, morbid obesity, asthma, macular degeneration, ANTONIA, COPD, hepatic
steatosis, chronic heart failure with preserved ejection fraction, coronary artery disease, type 2 diabetes mellitus who presents today for left and right heart catheterization in the setting of moderate to severe bioprosthetic aortic stenosis and
moderate to severe mitral stenosis with up titration of diuretics as an outpatient with ongoing dyspnea on exertion
Progress Note - Gin Clerk
Subjective
Date of Service: July 09, 2023
Pt seen and examined. No complaints. No chest pain or shortness of breath.
Objective
Labs:
07/09/23 05:26
Labs
Hgb 14.7 g/dL (13.0-18.0) 07/09/23 05:26
Hct 42.4 % (39.0-52.0) 07/09/23 05:26
Plt Count 158 10^3/uL (130-400) 07/09/23 05:26
PT 14.3 Sec (11.4-14.6) 07/08/23 05:03
INR 1.13 07/08/23 05:03
APTT 31.2 Sec (23.4-35.0) 07/08/23 05:03
Sodium 137 mmol/L (135-145) 07/09/23 05:26
Potassium 4.1 mmol/L (3.5-5.1) 07/09/23 05:26
BUN 38 mg/dl (9-20) H 07/09/23 05:26
Creatinine 1.6 mg/dL (0.7-1.3) H 07/09/23 05:26
Glucose 121 mg/dl (70-99) H 07/09/23 05:26
Vital Signs and I&O:
Vital Signs
Temp Pulse Resp BP Pulse Ox
98.9 F 73 16 119/76 96
07/09/23 07:21 07/09/23 11:00 07/09/23 09:48 07/09/23 07:58 07/09/23 08:09
Vital Signs
Temp Pulse Resp BP Pulse Ox
98.9 F 73 16 119/76 96
07/09/23 07:21 07/09/23 11:00 07/09/23 09:48 07/09/23 07:58 07/09/23 08:09
Intake & Output
07/07/23 07/08/23 07/09/23 07/10/23
06:59 06:59 06:59 06:59
Intake Total 363.5 / 363.5 712 / 712 240 / 240
Output Total 4450 / 4450 2500 / 2500 1000 / 1000
Balance -4086.5 / -4086.5 -1788 / -1788 -760 / -760
Physical Exam
Physical Exam
General: No acute distress, AAOX3
Neck: Negative JVD
Heart: Regular, Negative S3 positive S1/S2, Negative S4, No murmur
Lungs: CTA b/l, negative wheezes/rales/rhonchi
Abd: Truncal obesity, positive BS, NT/ND, neg rebound/rigidity/guarding
Ext: Negative cyanosis/clubbing/edema
Neuro: nonfocal
[2023-07-09 16:39] LABS: Blood Urea Nitrogen 31 mg/dl (9-20); Calcium 8.8 mg/dl (8.4-10.2); Carbon Dioxide 29 mmol/L (22-30); Chloride 100 mmol/L (98-107); Estimated Creatinine Clearance 68 ml/min; Glucose 145 mg/dl (70-99); Potassium 4.4 mmol/L (3.5-5.1); Sodium 136 mmol/L (135-145); eGFR > 60.00
[2023-07-09] MEDS: LIPITOR 40 MG PO (18:03)
[2023-07-09] MEDS: PROTONIX 40 MG PO (22:17)
[2023-07-10] VITALS (8 sets, daily range): BP systolic 109–127; BP diastolic 60–78; PULSE 2–78; BMI 42.5
[2023-07-10 04:59] LABS: Hematocrit 41.3 % (39.0-52.0); Hemoglobin 13.9 g/dL (13.0-18.0); Mean Corp Hgb Conc. 33.7 g/dL (33.0-37.0); Mean Corpuscular Hgb 32.1 pg (27.0-31.0); Mean Corpuscular Volume 95.4 fL (80.0-94.0); Mean Platelet Volume 9.8 fL (7.4-10.4); Platelet Count 156 10^3/uL (130-400); Red Blood Cell Count 4.33 10^6/uL (4.70-6.10); Red Cell Dist. Width 13.5 % (11.5-14.5); White Blood Cell Count 7.8 10^3/uL (4.8-10.8)
--- NOTE | 2023-07-10 05:25 | PTCARENOTE ---
Tele remains Sinus Rhythm w/ occasional PVCs. Pt denies any pain or discomfort. Currently sitting in chair this AM. Nursing staff measuring urine output, pt voiding yellow urine w/out difficulty. Right radial site and brachial ELAINE. Right brachial
site ecchymotic, no hematoma noted at this time. POC ongoing.
[2023-07-10 05:26] LABS: Blood Urea Nitrogen 26 mg/dl (9-20); Calcium 8.9 mg/dl (8.4-10.2); Carbon Dioxide 31 mmol/L (22-30); Chloride 100 mmol/L (98-107); Estimated Creatinine Clearance 68 ml/min; Glucose 115 mg/dl (70-99); Magnesium 2.4 mg/dl (1.6-2.3); Potassium 4.7 mmol/L (3.5-5.1); Sodium 137 mmol/L (135-145); eGFR > 60.00
[2023-07-10] MEDS: ADVAIR HFA 115/21 MCG INHALER 2 PUFF INH ×2 (06:30→20:04)
--- NOTE | 2023-07-10 08:57 | W.PN.HOSP.TC ---
Today's Communication/Plan
-
Surgery tomorrow as below
Continue beta shyla, Aspirin, statin
Creatinine has improved
Assessment / Plan
Assessment / Plan
Physical Exam
General: Morbidly Obese
HEENT: Normocephalic.
Respiratory: Clear to Auscultation
Cardiac: Regular Rhythm and S1/S2
GI: Soft, Nontender and Nondistended. Positive bowel sounds.
Musculoskeletal: Edema, Right Lower Extrem and Edema, Left Lower Extrem
Skin: Warm. Dry.
Neuro: Awake, Alert, Oriented, AO x 3 and Nonfocal/Grossly Intact
Psych: Calm
Assessment/Plan
#Acute on chronic diastolic congestive heart failure
Acute hypoxic respite insufficiency -resolved
-Dry weight to 260 pound, today weight 263lb , significant swelling lower extremity and likely dry weight much lower than 260 pound
-off of o2 currently
-hold lasix drip for now.
-Maintained on aspirin/statin/Jardiance
#Brief asystole episode
-happened Intracath, discussed with textile conservator and recommended to start beta-shyla tomorrow morning
-monitor on telemetry
#ABHIJEET - IMPROVED
-From IV diuresis. Lasix drip on hold
-Follow-up renal function
-Lisinopril held.
-Received CTA this admission, monitor for DEENA
#history of bicuspid valve/severe AI s/p bioprosthetic AVR
history of moderate MR status post mitral valve ring
Mod-sev MS
-Plan for redo AVR and redo MVR with CABG July [address] Reynoso
-Intervention cardiology will discuss with CTS
#history of pleural effusion
-CT chest ruled out any effusion
#ANTONIA on BiPAP
-Continue nighttime BiPAP with settings of 25/19
chronic right bundle branch block
essential hypertension
hyperlipidemia
COPD - no signs of flare up
DVTPPX - heparin subq
Full code
Anticipated Discharge: 24 - 48 hours
Subjective/Interval History
-
Date of Service: July 10, 2023
Patient was seen and examined. He reported no new chest pain or shortness of breath.
Objective Data
-
Labs:
Laboratory Results
07/10/23
04:38
WBC 7.8
Hgb 13.9
Hct 41.3
Plt Count 156
Sodium 137
Potassium 4.7
Chloride 100
Carbon Dioxide 31 H
BUN 26 H
Creatinine 1.3
Glucose 115 H
Calcium 8.9
Vital Signs:
Vital Signs
Temp Pulse Resp BP Pulse Ox
98.6 F 75 20 121/60 97
07/10/23 07:27 07/10/23 06:33 07/10/23 07:27 07/10/23 04:27 07/10/23 07:27
I&O
07/09/23 07/10/23 07/11/23
06:59 06:59 06:59
Intake Total 712 / 712 1210 / 1210
Output Total 2500 / 2500 2450 / 2450
Balance -1788 / -1788 -1240 / -1240
[2023-07-10] MEDS: TOPROL XL 25 MG PO (08:59)
[2023-07-10] MEDS: ASPIRIN 325 MG PO (08:59)
[2023-07-10] MEDS: TOPROL XL 50 MG PO (08:59)
--- NOTE | 2023-07-10 09:25 | W.PN.UPDATE ---
Update Note
Progress Note Update
We discussed the risks and benefits. Will need AVR/MVR/CABG x 2 via redo sternotomy. I also updated his outpt fountain supervisor, Dr. Susanna Thurman who is also in agreement with this plan. Will need 3 prbcs and 3 plts on hold for OR tomorrow.
--- NOTE | 2023-07-10 09:54 | CM ---
Reviewed chart. Met with Mr. Esteves to review discharge plans. Prior to admission he resides alone in a two story home with three steps to enter. He has a full lfight of steps to get to bedroom/full bathroom. He has a powder room on the first
floor. Prior to admission he was independent with ambulation and adls. He has a bi-pap machine and no other DME in the home. He has a prescription plan and uses [facility]. His brother Jovanny resides close by and maybe able to assist in his
care if needed. His sister resides in [place] and does see him on a regular basis. Medical work-up in progress. The discharge plan is to return home with family support and a home visit by the Cardiothoracic Transitional Care Nurse when
medically stable.
--- NOTE | 2023-07-10 11:05 | W.PN.CARDCBS ---
Today's Communication / Plan
-
OR tomorrow
Impression / Plan
-
.
PCP: Dr. Key
Cardiology: Dr. Susanna Thurman
Pulm: Dr. Logan
Impression:
Presented 07/07/2023 for elective right and left heart catheterization
Multivessel coronary artery disease
Aortic and mitral stenosis, moderate to severe
Acute on chronic heart failure with preserved ejection fraction
Acute renal insufficiency
Hypertension
Hyperlipidemia
Type 2 diabetes
s/p tissue AVR for severe and bicuspid AV 05/22/12
s/p MV ring repair for moderate MR 05/22/12
Mild to moderate LVH with mid cavitary gradient by echo 07/22/22
Moderate right and small left pleural effusions by CT 02/22/23
Right pleural effusion, s/p Rt thoracentesis 02/23/23
Fatty liver
ANTONIA
Chronic RBBB
Asthma/COPD
Obesity
Macular degeneration
Cardiac catheterization 07/07/2023: LM: cloacal in origin with essentially separate ostia for the LAD and the left circumflex artery. LAD: 80% mid stenosis. LCX: Diffuse plaque. RCA: 70% ostial with diffuse 50% mid stenosis.
RA (m) : 29; RV (s/d,m) : 75/25, 29; PA (s/d, m) : 78/47, 60; PCWP (m) : 39; PA saturation: 62.2% on room air; AO saturation: 87.3% on room air; RA saturation: 63.3% on room air; Cardiac Output : 5.62 L/min; Cardiac Index : 2.5 L/min/m-2; Systemic
vascular resistance: 939 dsc^(-5); Pulmonary vascular resistance: 3.73 hayden unit
Exercise mibi 01/23/23: Completed 3:06 min Jak protocol and reached 98% MPHR, poor exercise tolerance, perfusion is normal with no fixed or reversible defects seen, EF 61%
Echo 07/22/22: EF 70 to 75%, mild to moderate concentric LVH with a hyperdynamic LV and a LV mid cavitary gradient increasing to peak of 42 mmHg Valsalva maneuver, mild MR, mitral valve repair with peak/mean gradients 29/18 mmHg, tissue AVR in place
with peak/mean gradients 36/22 mmHg, mild TR, compared to previous echo 03/11/2021 the LV appears more hyperdynamic with a new mid cavitary gradient seen with Valsalva and the mean aortic valve gradient was previously 15 mmHg and is now 22 mmHg,
similarly the gradient across the mitral valve had increased from previously 11 to now 18
Echo 02/22/23: EF 70-75%, LV small in size, severe conc LVH with hyperdynamic LV systolic function, no significant LVOT gradient. Normal RV size with increased RV wall thickness and low normal RV systolic function, s/p MV repair with 26 mm
annuloplasty ring and peak/mean gradients 28/16 mmHg, mild MR, s/p #23 bovine AVR peak/mean gradients 50/36 mmHg, aortic valve dimensionless index is 0.4.�Compared to previous echo 07/22/22, the aortic valve gradient has increased from 22-36mmHg and
the PA pressures increased from 42 to 65 mmHg.
CHARLEEN 03/23/2023: EF 70%, moderate concentric LVH, moderately dilated left atrium mildly dilated right atrium. Moderate to severe mitral stenosis with mild to moderate regurgitation. Bioprosthetic aortic valve with mean gradient 34 suggesting moderate
to severe aortic stenosis with mild aortic regurgitation. Mild to moderate tricuspid regurgitation
Carotid Doppler 07/07/2023: No significant bilateral ICA stenosis, less than 50%
Plan:
Cr normalized off IV Lasix drip which had been started by CT surgery. Creatinine kirk to 1.6 on 07/09/2023 and is 1.3 on 07/10/2023
Monitor Is and Os and daily wts and cr
Cont beta shyla after transient heart block with cath, no recurrent heart block.
Plan for redo AVR and redo MVR with CABG July [address] Reynoso
Continue medical management with aspirin, beta-shyla, ZAYNAB inhibitor, statin
Lipids 07/08/2023 TC 135, HDL 37, LDL 79, triglycerides 99; Atorvastatin increased to 40 mg daily
HPI 07/07/2023:
Patient is a 68-year-old gentleman with past medical history of bicuspid aortic stenosis status post bioprosthetic AVR and mitral valve repair in 2012, hypertension, hyperlipidemia, morbid obesity, asthma, macular degeneration, ANTONIA, COPD, hepatic
steatosis, chronic heart failure with preserved ejection fraction, coronary artery disease, type 2 diabetes mellitus who presents today for left and right heart catheterization in the setting of moderate to severe bioprosthetic aortic stenosis and
moderate to severe mitral stenosis with up titration of diuretics as an outpatient with ongoing dyspnea on exertion
Progress Note - Abrasives Sales Representative
Subjective
Date of Service: July 10, 2023
Pt seen and examined. No complaints. No chest pain or shortness of breath.
Objective
Labs:
07/10/23 04:38
07/10/23 04:38
Labs
Hgb 13.9 g/dL (13.0-18.0) 07/10/23 04:38
Hct 41.3 % (39.0-52.0) 07/10/23 04:38
Plt Count 156 10^3/uL (130-400) 07/10/23 04:38
PT 14.3 Sec (11.4-14.6) 07/08/23 05:03
INR 1.13 07/08/23 05:03
APTT 31.2 Sec (23.4-35.0) 07/08/23 05:03
Sodium 137 mmol/L (135-145) 07/10/23 04:38
Potassium 4.7 mmol/L (3.5-5.1) 07/10/23 04:38
BUN 26 mg/dl (9-20) H 07/10/23 04:38
Creatinine 1.3 mg/dL (0.7-1.3) 07/10/23 04:38
Glucose 115 mg/dl (70-99) H 07/10/23 04:38
Vital Signs and I&O:
Vital Signs
Temp Pulse Resp BP Pulse Ox
98.6 F 82 20 127/70 97
07/10/23 07:27 07/10/23 09:00 07/10/23 07:27 07/10/23 07:32 07/10/23 07:27
Vital Signs
Temp Pulse Resp BP Pulse Ox
98.6 F 82 20 127/70 97
07/10/23 07:27 07/10/23 09:00 07/10/23 07:27 07/10/23 07:32 07/10/23 07:27
Intake & Output
07/08/23 07/09/23 07/10/23 07/11/23
06:59 06:59 06:59 06:59
Intake Total 363.5 / 363.5 712 / 712 1210 / 1210
Output Total 4450 / 4450 2500 / 2500 2450 / 2450 600 / 600
Balance -4086.5 / -4086.5 -1788 / -1788 -1240 / -1240 -600 / -600
Physical Exam
Physical Exam
General: No acute distress, AAOX3
Neck: Negative JVD
Heart: Regular, Negative S3 positive S1/S2, Negative S4, No murmur
Lungs: CTA b/l, negative wheezes/rales/rhonchi
Abd: Positive BS, NT/ND, neg rebound/rigidity/guarding
Ext: Negative cyanosis/clubbing/edema
Neuro: nonfocal
--- NOTE | 2023-07-10 15:03 | PTCARENOTE ---
Pt with no complaints of chest pain. Remains SR with HR 70's. BP 119/61 MAP 78. Pulse oximetry 97% on room air. US vascular mapping completed. Type and screen obtained.
[2023-07-10] MEDS: LIPITOR 40 MG PO (18:23)
--- NOTE | 2023-07-10 20:00 | PTCARENOTE ---
pt transferred from IVU at 1930 into CVICU room 2265. pt A&Ox4, resting in chair at time of assessment. SR on tele-monitor, HR 70s. POX 98% on RA. pt voiding clear, yellow urine in urinal. PIV intact. plan of care discussed w/ pt, pt in agreement.
see worklist for complete nursing assessment, interventions, VS, and I&Os.
[2023-07-10] MEDS: PROTONIX 40 MG PO (20:52)
--- NOTE | 2023-07-10 21:30 | PTCARENOTE ---
pt clipped for CVOR. pt completed one pre-op shower. 2nd shower to be completed in AM.
[2023-07-11] VITALS (17 sets, daily range): BP systolic 89–133; BP diastolic 55–88; BMI 42.4
[2023-07-11] MEDS: MAGNESIUM OXIDE 500 MG PO (05:25)
[2023-07-11] MEDS: PROTONIX 40 MG PO (05:25)
[2023-07-11] MEDS: LOPRESSOR 25 MG PO (05:25)
[2023-07-11] MEDS: BACTROBAN 2% OINTMENT 1 APPLIC NASAL ×2 (05:25→20:34)
--- NOTE | 2023-07-11 05:30 | PTCARENOTE ---
2nd shower completed. pre-op meds given. pre-op education provided. all questions answered. salon designer to CVOR.
--- NOTE | 2023-07-11 06:35 | W.CVOR.SURPR ---
CVOR Surgeon Immed Pre Op
-
I have examined this patient prior to performance of the scheduled procedure.
The patient's condition is unchanged from the time of the dictated/written History and
Physical and the patient is able to undergo the scheduled procedure.
Redo sternotomy, AVR / MVR / CABG x 2
[2023-07-11 07:35] LABS: Urine Albumin Negative (Neg - Trace); Urine Bilirubin Negative (Negative); Urine Character Clear (Clear); Urine Color Yellow; Urine Glucose Negative (Negative); Urine Ketone Negative (Negative); Urine Leukocyte Negative (Negative); Urine Nitrite Negative (Negative); Urine Occult Blood Negative (Negative); Urine Urobilinogen Negative (Neg - 1+)
[2023-07-11 07:37] LABS: B.E. - POC -0.4 mmol/L; Glucose - POC 120 mg/dl (65-99); HCO3 - POC 25 mmol/L (21-29); Hematocrit - POC 39 % PCV (42-52); Hemodilution- POC No; Hemoglobin Calculated - POC 13.1; Ionized Calcium - POC 1.15 mmol/L (1.12-1.27); O2 Saturation %Calculated-POC 99.7 5 (92-96); PCO2 - POC 42 mmHg (35-45); PO2 - POC 207 mmHg (80-100); Potassium - POC 4.7 mmol/L (3.6-5.0); Sodium - POC 141 mmol/L (135-145); pH - POC 7.38 (7.35-7.45)
[2023-07-11] MEDS: ADVAIR HFA 115/21 MCG INHALER INH (08:27)
[2023-07-11 11:09] LABS: B.E. - POC 1.9 mmol/L; Glucose - POC 167 mg/dl (65-99); HCO3 - POC 27 mmol/L (21-29); Hematocrit - POC 36 % PCV (42-52); Hemodilution- POC Yes; Hemoglobin Calculated - POC 12.4; Ionized Calcium - POC 1.02 mmol/L (1.12-1.27); PCO2 - POC 44 mmHg (35-45); PO2 - POC 423 mmHg (80-100); Potassium - POC 5.5 mmol/L (3.6-5.0); Sodium - POC 138 mmol/L (135-145)
[2023-07-11] MEDS: ASPIRIN PO (11:18)
[2023-07-11] MEDS: TOPROL XL PO ×2 (11:19)
--- NOTE | 2023-07-11 11:37 | CM ---
Chart reviewed. Patient is in the OR today. Patient is independent of ADLS, lives alone in a 2 STH, 3 MAGGIE, 0 DME. Plan is for the patient to return home with CT Transitional RN. CM to follow
[2023-07-11 11:43] LABS: B.E. - POC 0.4 mmol/L; Glucose - POC 152 mg/dl (65-99); HCO3 - POC 25 mmol/L (21-29); Hematocrit - POC 37 % PCV (42-52); Hemodilution- POC Yes; Hemoglobin Calculated - POC 12.6; Ionized Calcium - POC 1.02 mmol/L (1.12-1.27); O2 Saturation %Calculated-POC 99.9 5 (92-96); PCO2 - POC 39 mmHg (35-45); PO2 - POC 335 mmHg (80-100); Potassium - POC 5.1 mmol/L (3.6-5.0); Sodium - POC 139 mmol/L (135-145); pH - POC 7.42 (7.35-7.45)
[2023-07-11 12:11] LABS: B.E. - POC 1.6 mmol/L; Glucose - POC 151 mg/dl (65-99); HCO3 - POC 25 mmol/L (21-29); Hematocrit - POC 36 % PCV (42-52); Hemodilution- POC Yes; Hemoglobin Calculated - POC 12.4; Ionized Calcium - POC 1.05 mmol/L (1.12-1.27); PCO2 - POC 36 mmHg (35-45); PO2 - POC 391 mmHg (80-100); Potassium - POC 4.5 mmol/L (3.6-5.0); Sodium - POC 141 mmol/L (135-145); pH - POC 7.46 (7.35-7.45)
[2023-07-11 12:36] LABS: B.E. - POC 0.9 mmol/L; Glucose - POC 146 mg/dl (65-99); HCO3 - POC 24 mmol/L (21-29); Hematocrit - POC 37 % PCV (42-52); Hemodilution- POC Yes; Hemoglobin Calculated - POC 12.4; Ionized Calcium - POC 1.06 mmol/L (1.12-1.27); O2 Saturation %Calculated-POC 99.9 5 (92-96); PCO2 - POC 34 mmHg (35-45); PO2 - POC 253 mmHg (80-100); Potassium - POC 3.9 mmol/L (3.6-5.0); Sodium - POC 142 mmol/L (135-145); pH - POC 7.47 (7.35-7.45)
[2023-07-11 13:19] LABS: B.E. - POC 0.7 mmol/L; Glucose - POC 149 mg/dl (65-99); HCO3 - POC 24 mmol/L (21-29); Hematocrit - POC 35 % PCV (42-52); Hemodilution- POC Yes; Hemoglobin Calculated - POC 11.9; Ionized Calcium - POC 1.06 mmol/L (1.12-1.27); O2 Saturation %Calculated-POC 99.9 5 (92-96); PCO2 - POC 33 mmHg (35-45); PO2 - POC 258 mmHg (80-100); Potassium - POC 4.1 mmol/L (3.6-5.0); Sodium - POC 141 mmol/L (135-145); pH - POC 7.47 (7.35-7.45)
[2023-07-11 13:44] LABS: Glucose - POC 159 mg/dl (65-99); HCO3 - POC 24 mmol/L (21-29); Hematocrit - POC 34 % PCV (42-52); Hemodilution- POC Yes; Hemoglobin Calculated - POC 11.7; Ionized Calcium - POC 1.07 mmol/L (1.12-1.27); O2 Saturation %Calculated-POC 99.9 5 (92-96); PCO2 - POC 36 mmHg (35-45); PO2 - POC 256 mmHg (80-100); Sodium - POC 142 mmol/L (135-145); pH - POC 7.43 (7.35-7.45)
[2023-07-11 14:20] LABS: B.E. - POC -0.4 mmol/L; Glucose - POC 162 mg/dl (65-99); HCO3 - POC 24 mmol/L (21-29); Hematocrit - POC 35 % PCV (42-52); Hemodilution- POC Yes; Hemoglobin Calculated - POC 11.9; Ionized Calcium - POC 1.07 mmol/L (1.12-1.27); O2 Saturation %Calculated-POC 99.9 5 (92-96); PCO2 - POC 38 mmHg (35-45); PO2 - POC 313 mmHg (80-100); Sodium - POC 142 mmol/L (135-145); pH - POC 7.41 (7.35-7.45)
[2023-07-11 14:33] LABS: B.E. - POC -0.6 mmol/L; Glucose - POC 170 mg/dl (65-99); HCO3 - POC 24 mmol/L (21-29); Hematocrit - POC 34 % PCV (42-52); Hemodilution- POC Yes; Hemoglobin Calculated - POC 11.6; Ionized Calcium - POC 1.07 mmol/L (1.12-1.27); O2 Saturation %Calculated-POC 99.9 5 (92-96); PCO2 - POC 38 mmHg (35-45); PO2 - POC 348 mmHg (80-100); Potassium - POC 3.9 mmol/L (3.6-5.0); Sodium - POC 141 mmol/L (135-145); pH - POC 7.41 (7.35-7.45)
[2023-07-11 15:16] LABS: ACT+ - POC 115 Seconds (82-134)
[2023-07-11 15:18] LABS: B.E. - POC -6.6 mmol/L; Glucose - POC 184 mg/dl (65-99); HCO3 - POC 21 mmol/L (21-29); Hematocrit - POC 36 % PCV (42-52); Hemodilution- POC Yes; Hemoglobin Calculated - POC 12.2; Ionized Calcium - POC 1.23 mmol/L (1.12-1.27); O2 Saturation %Calculated-POC 97.5 5 (92-96); PCO2 - POC 51 mmHg (35-45); PO2 - POC 116 mmHg (80-100); Potassium - POC 3.9 mmol/L (3.6-5.0); Sodium - POC 142 mmol/L (135-145); pH - POC 7.23 (7.35-7.45)
[2023-07-11 15:25] LABS: ACT+ - POC > 1003 Seconds (82-134)
[2023-07-11 15:25] LABS: ACT+ - POC > 1003 Seconds (82-134)
[2023-07-11 15:25] LABS: ACT+ - POC 840 Seconds (82-134)
[2023-07-11 15:25] LABS: ACT+ - POC 970 Seconds (82-134)
[2023-07-11 15:25] LABS: ACT+ - POC 109 Seconds (82-134)
[2023-07-11 15:25] LABS: ACT+ - POC > 1003 Seconds (82-134)
[2023-07-11 15:26] LABS: ACT+ - POC 603 Seconds (82-134)
[2023-07-11 15:26] LABS: ACT+ - POC 684 Seconds (82-134)
[2023-07-11 15:26] LABS: ACT+ - POC 568 Seconds (82-134)
[2023-07-11 15:26] LABS: ACT+ - POC 536 Seconds (82-134)
--- NOTE | 2023-07-11 15:41 | CON.INTV ---
Consultation
Consultation Request
Date/Time Consultation Requested: 07/11/23
Date/Time Consultation Performed: 07/11/23
Performing Provider: Teddy
Reason for Consultation: CVICU
Medical History
-
History of Present Illness:
Patient is a 68-year-old male with previous history of chronic diastolic congestive heart failure, history of bicuspid valve with severe AI status post bioprosthetic AVR, moderate MR status post mitral valve ring, obesity, ANTONIA on BiPAP,
hypertension, morbid obesity presenting with worsening stenosis of bioprosthetic aortic valve and moderate to severe mitral stenosis evaluated by cardiothoracic surgery. Underwent left heart catheterization demonstrating multivessel disease.
Complains of exertional shortness of breath at baseline.
Underwent CABG, redo of his aortic valve and mitral valve on 07/11/23. He is perioperatively intubated, on Veletri for high PAPs and admitted to CVICU for further management.
Past Medical History
Past Medical History: Other (see list below)
Social History
Tobacco: Non-smoker
Alcohol: None
Drug: None
Family History
Family History: Reviewed & Not Pertinent
Allergies / Home Medications
Allergies
Allergy/AdvReac Type Severity Reaction Status Date / Time
banana Allergy Nausea Verified 07/07/23 06:18
cat dander Allergy Unknown Verified 07/07/23 06:18
horse dander Allergy Unknown Verified 07/07/23 06:18
tree and shrub pollen Allergy Unknown Verified 07/07/23 06:18
Environmental Allergy Itching Uncoded 07/07/23 06:24
GREEN GRASSY FOODS Allergy Unknown Uncoded 07/07/23 06:24
Home Medications
�Medication �Instructions �Recorded �Confirmed �Last Taken �Type
Al hyd-Mg tr-alg ac-sod bicarb 80 1 tab PO QIDPRN PRN gerd 02/22/23 07/07/23 Unknown History
mg-14.2 mg chewable tablet
(Gaviscon)
albuterol sulfate 90 mcg/actuation 2 puff inhalation R QIDPRN PRN sob 02/22/23 07/07/23 07/06/23 16:00 History
aerosol inhaler (ProAir HFA)
aspirin 325 mg tablet 325 mg PO DAILY 02/22/23 07/07/23 07/06/23 09:00 History
atorvastatin 10 mg tablet (Lipitor) 10 mg PO DAILY 02/22/23 07/07/23 07/06/23 07:00 History
calcium carbonate (Tums) 200 mg PO BIDPRN PRN gerd 02/22/23 07/07/23 Unknown History
fluticasone 250 mcg-salmeterol 50 1 inh inhalation R BID 02/22/23 07/07/23 07/06/23 09:00 History
mcg/dose blistr powdr for
inhalation (Wixela Inhub)
pantoprazole 40 mg tablet,delayed 40 mg PO HS 02/22/23 07/07/23 07/05/23 History
release (Protonix)
vitamins A,C,U-wjux-hjovgg 2,148 1 tab PO BID 02/22/23 07/07/23 07/06/23 14:00 History
mcg-113 mg-45 mg-17.4 mg tablet
(PreserVision AREDS)
dapagliflozin propanediol 10 mg 10 mg PO DAILY Fluid 02/27/23 07/07/23 07/06/23 07:00 Rx
tablet (Farxiga) retention/Swelling 30 days #30 tabs
lisinopril 40 mg tablet 40 mg PO DAILY Blood pressure #0 02/27/23 07/07/23 07/06/23 07:00 Rx
tabs
furosemide 80 mg tablet 80 mg PO QPM Fluid 03/23/23 07/07/23 07/06/23 17:30 History
retention/Swelling
metoprolol succinate 50 mg 75 mg PO DAILY Blood pressure 03/23/23 07/07/23 07/06/23 07:00 History
tablet,extended release 24 hr
multivitamin 1 tab PO DAILY 03/23/23 07/07/23 07/06/23 07:00 History
Review of Systems
-
Unable to Obtain full review of systems at this time due to: Patient Intubation
Vitals / Labs / Diagnostic Testing
Vital Signs
Temp Pulse Resp BP Pulse Ox
98.3 F 67 18 133/78 99
07/11/23 04:00 07/11/23 06:45 07/11/23 04:00 07/11/23 05:25 07/11/23 05:21
Diagnostic Testing:
Physical Exam
-
HEENT: Normocephalic, Anicteric, Moist Mucous Membranes and Other (thick neck)
Cardiovascular: S1/S2, Regular Rhythm and Peripheral Edema (chronic venous stasis changes)
Respiratory: Clear, Non-Labored Respirations and Other (ETT/chest tubes in place, median sternotomy C/D/I)
GI: Soft, Non Distended and Non Tender
Neurology: Other (sedated)
Skin: Warm, Dry and Good Color
General: Comfortable and Other (obese)
Assessment
-
Patient is a 68-year-old male with previous history of chronic diastolic congestive heart failure, history of bicuspid valve with severe AI status post bioprosthetic AVR, moderate MR status post mitral valve ring, obesity, ANTONIA on BiPAP,
hypertension, morbid obesity presenting with worsening stenosis of bioprosthetic aortic valve and moderate to severe mitral stenosis evaluated by cardiothoracic surgery. Underwent left heart catheterization demonstrating multivessel disease.
Underwent CABG, redo of his aortic valve and mitral valve on 07/11/23. He is perioperatively intubated, on Veletri for high PAPs and admitted to CVICU for further management.
CAD s/p AVR/MVR/CABG x 2 via redo sternotomy
Aortic and mitral stenosis, moderate to severe
Acute on chronic heart failure with preserved ejection fraction
Acute renal insufficiency
Mod-severe PH on Veletri
Perioperative mechanical ventilation
Conditions present TRAINING AND DOCUMENTATION SPECIALIST
Multivessel coronary artery disease
Aortic Stenosis Congenital S/P AVR
Hypertension
HLD
Type II DM
Eosinophilia
Asthma with severe obstruction on PFT
Obesity
Reflux
Macular degeneration
Severe ANTONIA, PSG 2017 AHI 113 BIPAP 25/19 cm water
Plan
S/p CABG redo AV/MVR POD #0
Titrate off pressors per protocol
ECHO reviewed with high/normal function, h/o CHFpEF
RHC/LHC readings reviewed, prior to surgery
Eventual diuresis
PA catheter readings reviewed elevated wedge/PAP
Wean veletri based on desired PA parameters
Management of chest tubes per primary service
Intubated/sedated, initiate SAT when able
Pain control
RASS goal of 0 to -1
Intubated for procedure, SBT trial when patient able to spontaneously breath
Current vent settings reviewed
ABG(s) reviewed, mild acidosis, CO2 adequate
CXR previously reviewed without acute process, repeat pending post intubation
Extubate per protocol --can extubate to BIPAP 25/19 if needed
Maintain supplement oxygen as needed, no history of home use
Resume inhalers
Prior history of pulmonary disease noted
Prior PFTs reviewed with severe obstruction
Resume home inhalers/Can add nebulizers if needed
Aspiration precautions
Encouraged incentive spirometry, OOB/ambulation/early mobility
Advance diet as tolerated following extubation
GI prophylaxis if indicated for mechanical ventilation >48 hours
Monitor critical I/O's
Mahmood/chest tube output
Hb/platelets postoperatively stable
Trend CBC for now
Can transfuse if indicated for Hb <7, plt <50 in surgical patients
DVT prophylaxis including SCDs
We will follow
Diagnostic Data
Chest X-Ray: 07/07/23- No acute cardiopulmonary process.
CT Scan: CAP 07/09/23- 1. Mild aortic atherosclerotic changes. Negative for aortic aneurysmal dilation. At least moderate coronary artery calcification.
2. Incidental dilation of the left external iliac vein as above, 2.8 cm diameter. Etiology of this is indeterminate, but present dating back to 2017 with a slight interval increase in size.
3. No acute pulmonary process. Two subcentimeter nodules at the base of the right lower lobe which are highly likely to have a benign etiology as they were present and minimally smaller in size on CT obtained August 2016.
4. Mild mediastinal adenopathy, indeterminate etiology.
5. Hepatic fatty infiltration.
6. Cholelithiasis.
7. Moderate fat-containing right inguinal hernia. Small amount of traction effect against the right side of the urinary bladder secondary to the inguinal hernia.
RHC/LHC 07/07/23- RA (m) : 29 - RV (s/d,m) : 75/25, 29 - PA (s/d, m) : 78/47, 60 - PCWP (m) : 39
PA saturation: 62.2% on room air - AO saturation: 87.3% on room air - RA saturation: 63.3% on room air
Cardiac Output : 5.62 L/min - Cardiac Index : 2.5 L/min/m-2
Systemic vascular resistance: 939 dsc^(-5) - Pulmonary vascular resistance: 3.73 hayden unit
Echo: CHARLEEN 03/23/23- Normal left ventricular size and function. Moderate concentric left ventricular hypertrophy. Left ventricular ejection fraction is 70%. Normal right ventricular size and function.
Moderately dilated left atrium. Mildly dilated right atrium. A mitral valve ring is in place. There is evidence of a prior repair. There is thickening with moderate to severe mitral stenosis. The repair leaflet does have significant
thickening. There is mild to moderate regurgitation. There is no clear paravalvular leak. Mean gradient across the mitral valve 11 mmHg. A bioprosthetic aortic valve is in place. The leaflets are thickened and the orifice has decreased. Mean
gradient across the aortic valve was 34 mmHg. There is mild aortic regurgitation present. This is suggestive of moderate to
severe bioprosthetic stenosis. Mild to moderate tricuspid regurgitation.
PFT's: 07/09/23- FEV1 0.96L 33%, FVC 2.29L 58%, ratio 42--severe
Reports and relevant images were personally reviewed.
-----
Critical care time 55 mins -- this includes review of history, physical exam, medications, hemodynamic/ventilator parameters, laboratory data, imaging and discussion with house staff, pharmacy, respiratory therapy, line technician, and nursing.
[2023-07-11] MEDS: TYLENOL PO ×2 (15:49→21:50)
[2023-07-11] MEDS: PACERONE PO ×2 (15:50→21:50)
[2023-07-11] MEDS: NEURONTIN PO ×2 (15:50→21:50)
[2023-07-11] MEDS: VELETRI 50 MCG INH (16:19)
[2023-07-11] MEDS: VELETRI 50 ML INH (16:19)
--- NOTE | 2023-07-11 16:22 | W.PN.CT.SURG ---
CT Surgery Operative Note
-
CARDIAC SURGERY OPERATIVE REPORT
Preoperative Diagnosis: Acute on chronic congestive heart failure secondary to severe aortic valve stenosis [prosthesis] and severe mitral valve stenosis, with multivessel coronary disease
Postoperative Diagnosis: Same
Procedure(s) Performed:
1. Ultrasound-guided access using micropuncture and Seldinger technique to the right common femoral artery and vein
2. Redo sternotomy with central aortic cannulation, central SVC cannulation and femoral IVC cannulation
3. Extensive adhesiolysis of dense scar tissue, modifier 22
4. CABG x 2 [in situ VARGHESE to LAD, aorta to RSVG to RPDA]
5. Surgical aortic valve replacement [ mechanical]
6. Surgical chordal sparing mitral valve replacement [ mechanical]
7. Placement temporary atrial ventricular pacing wires
8. Transesophageal echocardiography
9. Endoscopic vein harvest of the left lower extremity
Date of Surgery: 07/11/2023
Comorbidities:
1. Acute on chronic congestive heart failure with respiratory failure requiring IV diuresis, PCWP markedly elevated to 39
2. Previous open heart surgery in 2012 including aortic valve replacement with a bioprosthesis and mitral valve repair
3. Severe bioprosthetic aortic valve stenosis
4. Severe mitral valve stenosis, secondary to previous repair and degeneration/calcification of the anterior leaflet (Type 3a)
5. Multivessel coronary artery disease involving the proximal LAD
6. Asthma
7. Hypertension
8. Hyperlipidemia
9. Prediabetes
10. Peripheral vascular disease
11. Macular degeneration
12. Morbidly obese with BMI greater than 30
13. Severe pulmonary hypertension, PA systolics in the 70s to 80s
14. Pre-existing right bundle branch block and asystole with rare ventricular escape beats during cath preoperatively
Attending Surgeon: Jonnie Reynoso MD, MS
Assistants: Belkys Pineda PA-C (present and necessary to assistant professor of physics, retraction, suction, exposure, suture management, and wound closure under my direction) & Bibi Samano PA-C (endoscope vein harvest)
Anesthesiology: Ha Bloom MD and Vanessa Zuniga CRNA
Scrub and Circulating RNs: Venancio Gonzalez, RN, Shannon Rodriguez, RN & Vimal Saxena RN
Corporate Giving Manager: Maya Hernández CCP and Irene Mccarthy CCP
Anesthesia: GETA
EBL: per perfusion records
Products: None
CPB Time: 231 minutes
Aortic Cross Clamp Time: 186 minutes
Indication(s) for Procedures: This is a 68-year-old male who is known to me as an outpatient. Previous cardiac surgery in 2012 that consisted of a biological aortic valve replacement with 23 mm bioprosthesis and mitral valve repair with a 26 mm
ring annuloplasty. He has developed severe bioprosthetic aortic valve stenosis from structural degeneration and severe mitral valve stenosis from an undersized ring. Over the last several weeks has been gaining weight and retaining fluid requiring
IV Lasix. He underwent left heart cath on Monday and was found to have severely elevated wedge pressures and also had complete heart block with rare ventricular escape beats following the cath. He was found to be severely volume overloaded with
respiratory failure secondary to acute on chronic congestive heart failure and so was admitted for IV diuretics and medical optimization for surgery.
Aortic Valve Description: Severely calcified thickened leaflets of the bioprosthetic valve. A total of 13 core knots were retrieved along with several pledgets from his previous bioprosthetic aortic valve replacement. The root was heavily
calcified and the valve was densely incorporated into the local tissue. Of note, the LAD and circumflex ostia were coming off separate inside the sinus
Mitral Valve Description: Severely abnormal leaflets both anteriorly and posteriorly, thickened and calcified anteriorly for the mitral valve particular the posterior medial, right trigone. The previous mitral valve annuloplasty ring was severely
undersized at 26 mm, no core knots were used and the valve was tied by hand into place.
Findings: His left ventricular ejection fraction preoperatively was 60%. He had severely elevated pulmonary hypertension with his PA pressures in the 70s to 80s beginning the case. He was also found to have severely elevated wedge pressures on
left heart cath prior to surgery and required significant IV diuretics and was able to achieve net -7.5 L prior to surgery. He had evidence of acute on chronic congestive heart failure before the surgery. There were dense adhesions from his
previous pericardiotomy. This required extensive adhesiolysis had added approximately 45 minutes to the surgery. Additionally he had dense calcification of his aorta mitral curtain and the fibrous body. This required extensive debridement using
the CUSA device following extraction of the previous bioprosthetic valve and ring annuloplasty. 2 coronary artery bypass grafts or performed, saphenous vein graft from the aorta to his RPDA. Test dosing of antegrade revealed a flow of
approximately 30 cc a minute at a pressure of 80 mmHg. The VARGHESE was left in situ and grafted to his LAD at the midportion. There is excellent visual flow in the LAD territory with backfilling into the diagonal. His previous bioprosthetic aortic
valve was extracted along with all his core knots and pledgets. The root and annulus was heavily calcified that required extensive debridement. The mitral valve was access via the left atrium at the previous atriotomy site. The previous 26 mm
ring was resected in its entirety and the CUSA device was used to debride the annulus in order to enlarge it to accommodate a new valve. The mitral valve was replaced using a chordal sparing method after we located the anterior leaflet towards the
posterior annulus. A 25/33 mm size mechanical prosthesis and secured to place with a total of 12 core knots using nonpledgeted 2 Ethibond sutures. There is no evidence of paravalvular leak with normal excursion of both the mechanical leaflets
after coming off cardiopulmonary bypass. There were the negative washing jets inherent with this device. The mean gradient across the mitral valve was 3 mmHg. The aortic valve was replaced with a 21 mm mechanical prosthesis secured to place with
a total of 12 core knots using nonpledgeted 2 Ethibond sutures. After coming off of cardiopulmonary bypass there is no evidence of paravalvular leak with normal excursion of both the mechanical leaflets. There were inherent washing jets that are
[place] to this device. The mean gradient across the aortic valve mechanical prosthesis was 5 mmHg. His PA pressures kirk significantly to systemic levels after coming off cardiopulmonary bypass however he was stable clinically and had good step up
and RV function. His cardiac index was low in the mid 1.5-1.6 range on low-dose epinephrine and Levophed. He was volume responsive but did require AV pacing at the conclusion of the case. Decision was made to start Flolan in the CVICU in
anticipation of his arrival. After chest closure his PA pressures did return to his baseline in the mid 70s. No blood products were required. His LV was hypertrophic but overall systolic function was normal. RV function was normal. There was
only trace tricuspid valve insufficiency.
Specimen(s): Prior bioprosthetic aortic valve.
Prosthesis:
1. 25/33mm ON-X mechanical mitral valve, SN [id number]
2. 21mm ON-X mechanical aortic valve, SN [id number]
Description of Procedure: The patient was taken to the operating room. Their identity and procedure to be performed were verified and they were positioned supine on the operating table. Induction via general anesthesia with endotracheal intubation
was performed and central venous access and arterial monitoring were inserted. A preoperative transesophageal echocardiogram was performed to assess cardiac function and valvular function. The patient was then prepped and draped from chin to feet in
a sterile fashion. A preoperative time-out was performed with all members of the team present. Endoscopic harvesting of the lower extremity was commenced. Ultrasound was used to access the right common femoral vessels using Seldinger technique
with micropuncture with insertions of 5 [place] sheaths on the common femoral artery and vein. Midline chest incision was then created. The previous 7 sternotomy wires were then extracted. Using an oscillating saw the anterior table of the prior
sternotomy site was divided. Rakes were then used to elevate the xiphoid sternum and a laminar l d rn was used to separate the lower portion of the sternal body. Straight Matrinez scissors were used to transect the posterior table of the sternum.
Laminar spreaders were then walked up towards the manubrium which was then divided with the oscillating saw. Once the sternotomy was created the left and right hemisternum were then elevated and the heart was from the posterior table. I
started my dissection at the base of the heart towards the diaphragm. This gave me landmarks towards the apex and then also towards the IVC and right atrium. Next the aorta was identified and the innominate vein was fully isolated and freed up
underneath the posterior table. At this point the median sternotomy retractor was replaced for a Rultract retractor to elevate the left hemisternum. Left hemithorax was entered and the mammary was harvested in a skeletonized fashion. Exposure was
quite difficult given his very stiff chest and anatomy/body habitus. After giving 5000 of intravenous heparin, the mammary was transected distally and found to have an excellent pulsatile flow through the conduit. It was then clipped with a medium
clip and papaverine was applied to the vessel and wrapped in a Ray-Bertha and returned into the left hemithorax. I then turned my attention back towards the chest and placed a median sternotomy retractor. Extensive adhesiolysis was performed in order
to free the left side of the heart in order to expose the LAD target. The aorta was circumferentially dissected and away from the pulmonary artery. Once I performed as much dissection as I could off cardiopulmonary bypass full
heparinization was given (a total of 60,000 units). A long J-wire was then inserted to the common femoral vein and verified under transesophageal echocardiography to be in the SVC. A large dilator was then passed over top of the wire followed by
the 25 [place] percutaneous venous cannula that was placed into the SVC. The aortic cannulation site was chosen where it was soft, pliable, and free of calcium above the previous cannulation site, we were up at the proximal to mid arch. Cannulation
was performed with an arterial cannula in the ascending aorta along with an angled metal tip cannular in the superior vena cava. The arterial cannula line had an appropriate bounce and correlating pressures. Next, a root vent/antegrade cannula was
inserted into the ascending aorta. The ACT was confirmed to be over 400 and retrograde autologous priming was performed before commencing cardiopulmonary bypass. The pulmonary artery was away from the aorta to facilitate a clamp site.
Sondergaard�s groove was developed after identifying the Prolene sutures from the previous left atriotomy site. The aortic cross-clamp was placed after decreasing the flow on the bypass and mean arterial pressure. A total of 1.2L initial dose of
antegrade Del-Nido cardioplegia solution was given and planned for re-dosing every 75 minutes as necessary. There was rapid electro-mechanical arrest of the heart at 500 cc of cardioplegia. The left ventricle was observed for distention on
echocardiogram and manual palpation. Cold slush was placed into a lap on the RV and we systemically cooled to 34 degrees centigrade.
I positioned the heart to expose the distal right coronary at the posterior descending artery. A [place] band blade was used to expose the coronary and perform the arteriotomy. Coronary June scissors were used to enlarge the incision. The saphenous vein
was trimmed and beveled to an appropriate size. The distal anastomosis was performed using 7-0 prolene in an end-to-side fashion. Antegrade cardioplegia was administered into the graft. Appropriate hemostasis and flow were confirmed. The graft was
measured for length to the aorta and cut. A suitable target on the mid/distal left anterior descending was identified. We dissected and prepared the distal target in a similar fashion. We retrieved the VARGHESE from the chest and created a pericardial
opening while being cognizant of the phrenic nerve to facilitate the course of the mammary. The distal end of the mammary was prepped and beveled to size. We verified orientation and length of the LYSSA and found brisk flow. An end-to-side anastomosis
was created with a 7-0 prolene. We temporarily released the bulldog clamp on the mammary to inspect flow. Perfusion to the LAD territory was visualized and hemostasis was confirmed. The bull clamp was replaced on the mammary.
Carbon dioxide was used to flood the field. I previously dissected out identified the previous aortotomy suture line. Staying approximate 1 cm proximal to this an aortotomy was created and carried in oblique fashion heading down towards the
noncoronary sinus. The location of both left and right coronary vessels were visualized in the root. The previous core knots securing the bioprosthetic aortic valve was then removed sequentially and using a combination of ultrasonic debridement and
a freer elevator the previous bioprosthetic valve was removed and from the annulus. Further debridement of the annulus was required along with removal of the prior pledgets incorporated into the tissue. The root and left ventricular
outflow tract were thoroughly irrigated to remove any debris.
Next, the mitral valve was accessed via the left atrium at the inner atrial groove followed by valve analysis. The mitral valve was replaced as described above. The left ventricular vent was repositioned across the mitral valve into the left
ventricular and the left atrium was closed with a 3-0 prolene leaving a small pediatric drop sucker across the mechanical prosthesis in the left ventricle. Of note extensive debridement of the annulus was required in order to make room for the new
mechanical prosthesis. This was done with a combination of sharp dissection as well as ultrasonic debridement. I turned my attention back toward the root. A total of 12 non-pledgeted 2-0 ethibond inverted annular sutures were placed [id number]
circumferentially. These were brought through the sewing cuff of the prosthetic valve which as then parachuted into place, 2 pledgeted sutures were placed toward the noncoronary sinus with there was some separation of the annulus and sinus intimal
tissue. The left and right coronary ostia were visualized and were unobstructed by the valve. A Cor-Knot device was used to secure the annular sutures. The valve was inspected and was well seated. The aortotomy was approximated with 4-0 prolene in
two layers. Antegrade was then used to fill the root and a single aortotomy was created and enlarged with a 4.0 mm punch. The vein graft was then beveled accordingly and in end-to-side anastomosis was created using 6-0 Prolene in a running
fashion. The pediatric vent across the LV was then removed and the left atriotomy incision was secured and tied.
De-airing maneuvers were performed and temporary atrial and ventricular pacing wires were placed at the SVC/RA junction and base of the right ventricle, respectively. The patient was placed in a Trendelenburg position and flows on bypass were
lowered. The aortic cross clamp was removed and flows were slowly brought back up. The left atrial suture line was hemostatic. Transesophageal echocardiography revealed no evidence of systolic anterior motion and ventricular function was normal.
The AV prosthesis was well seated without PVL or AI with normal excursion of both mechanical leaflets. The mitral valve prosthesis was also well-seated without PVL or MR with normal excursion of both the mechanical leaflets. Once de-airing was
satisfactory the root vent was removed. After verifying acceptable parameters, we initiated weaning from cardiopulmonary bypass. Once we were off cardiopulmonary bypass, the venous cannulas was clamped and removed sequentially. A test dose of
protamine was administered and the patient was monitored for any adverse reaction before resuming protamine. Once half of the protamine dose was delivered, pump suckers were turned off and the systolic blood pressure was lowered for aortic
decannulation. The aortic cannula was removed and purse strings were tied down. All cannulation sites were oversewn with a 4-0 prolene. The left atrial suture line was inspected and hemostasis was confirmed. Mediastinal hemostasis was obtained. Two
#24 Shamar drains were placed within the pericardium and a single #19 Shamar drain into the left hemithorax. The sternum was approximated with 4 #7 single and 3 #8 double stainless steel wires. Fascia was approximated with #1 vicryl suture. The
subcutaneous, dermis and epidermis were closed in layers in a running fashion. The skin wound was cleansed and dressed.
All instrument, sponge, and needle counts were confirmed to be correct x 2 at the end of the operation. The patient was transferred to the cardiac intensive care unit in critical but stable condition.
I, Dr. Jonnie Reynoso, was present, scrubbed for, and performed all critical elements of this procedure.
Jonnie Reynoso MD, MS
Cardiothoracic Surgeon
[facility]
This dictation was created using the C2FO dictation system. Please excuse any grammatical, typographical, or 'sound alike' errors
--- NOTE | 2023-07-11 16:30 | PTCARENOTE ---
Addendum entered by Cass Peraza RN 07/11/23 18:32:
Left lower leg FAROOQ draining small amount of red fluid.
Original Note:
Pt received from [facility] at 1630. Pt intubated and sedated. Pt intubated with 8.0 ETT 23cm at the lip. SCMV 100% 16 550 5/5. POX 100%. Flolan infusing through vent per RT. Pt sedated on precedex gtt. Unresponsive. PERRLA 3cm brisk. 100% AV paced via
temporary epicardial AV wires set to 70/20/20. Per Dr. Reynoso, no underlying rhythm so do not pause pacer to obtain post op EKG. BP supported with levophed and epi gtts. PA pressures 70s/40s (Dr. Reynoso aware) CVP 18. CI 1.28 Dr. Reynoso aware. Bilateral
radial pulses palpable. Bilateral DP pulses weakly palpable. Bilateral PT pulses present via doppler. PVD discolorations to b/l lower extremities. No edema noted. Mediastinal chest tubes x2 y-sited to 1 atrium to -20cm suction draining red fluid. No
air leaks, tidaling, or crepitus noted. Left pleural chest tube to -20cm suction draining red fluid. No air leak, tidaling, or crepitus noted. CT output WNL. Abdomen soft, round, obese, nontender. Hypoactive BS. Mahmood catheter intact draining small
amount of alesha/blood tinged urine with sediment. Right IJ cordis and swan floated to 50cm. Left radial brianna intact. All lines flushed, leveled, and zeroed. Right hand 18g PIV infusing insulin gtt per Critical Care Glycemic Protocol. Left AC 20g
PIV intact. Sternal incision approximated with skin glue, FILTER CLEANER. CT sites covered, CDI. Right groin arterial sheath and blue plastic stitch intact. CT PA d/c arterial sheath. hemostasis achieved. Left groin puncture site approximated with skin glue,
ELAINE. Left SVG harvest site approximated with skin glue and ZAYNAB wrap CDI. See MAR for medication administration. See worklist for complete nursing assessment. Post op Labs and CXR completed.
[2023-07-11 16:42] LABS: Glucose - Point of Care 175 mg/dl (70-99)
[2023-07-11 16:42] LABS: B.E. -4.8 mmol/L; HCO3 22.1 mmol/L (21-28); Ionized Calcium 1.11 mMOL/L (1.15-1.33); O2 Saturation % 98.6 % (94-98); PCO2 47 mmHg (35-48); PO2 169 mmHg (83-108); Potassium 4.6 mMOL/L (3.5-5.1); Sodium 134 mMOL/L (136-145); pH 7.28 (7.35-7.45)
[2023-07-11 16:43] LABS: O2 Therapy VENT
[2023-07-11 16:44] LABS: Hemoglobin 12.6 g/dL (13.0-18.0); Platelet Count 143 10^3/uL (130-400)
[2023-07-11] MEDS: ANCEF 10 IV ×2 (16:47)
[2023-07-11] MEDS: NSS 500 IV (16:47)
[2023-07-11 16:56] LABS: APTT 35.8 Sec (23.4-35.0); INR 1.67; PT 19.5 Sec (11.4-14.6)
[2023-07-11 17:17] LABS: Blood Urea Nitrogen 19 mg/dl (9-20); Estimated Creatinine Clearance 74 ml/min; Glucose 171 mg/dl (70-99)
[2023-07-11 17:29] LABS: Magnesium 2.7 mg/dl (1.6-2.3)
--- NOTE | 2023-07-11 17:30 | PTCARENOTE ---
Dr. Reynoso at bedside. Pt hypotensive and a lot of ectopy, with short runs of VT. 1g CaCl IVP. 150mg amio bolus IVP. Amio gtt ordered. Temp pacer settings adjusted by Dr. Reynoso. No significant dumps from CTs. IV fluid bolus administered.
[2023-07-11] MEDS: SODIUM BICARBONATE 50 MEQ IV ×4 (17:40→22:59)
[2023-07-11] MEDS: LACTATED RINGERS 250 IV (17:40)
[2023-07-11] MEDS: DILAUDID 0.5 MG IV ×2 (17:41→21:40)
[2023-07-11] MEDS: CALCIUM CHLORIDE 10% SYRINGE 500 MG IV ×2 (17:41→17:42)
[2023-07-11] MEDS: CORDARONE 103 MG IV (17:47)
[2023-07-11] MEDS: CORDARONE 518 MG IV (17:56)
[2023-07-11 18:03] LABS: Glucose - Point of Care 167 mg/dl (70-99)
[2023-07-11 18:10] LABS: B.E. -2.4 mmol/L; HCO3 23.2 mmol/L (21-28); O2 Saturation % 98.8 % (94-98); PCO2 42 mmHg (35-48); PO2 228 mmHg (83-108); pH 7.35 (7.35-7.45)
[2023-07-11] MEDS: PRECEDEX 100 IV ×2 (18:50→22:10)
[2023-07-11] MEDS: LEVOPHED 250 IV (18:51)
--- NOTE | 2023-07-11 19:00 | PTCARENOTE ---
bedside report received from previous RN, pt in bed, intubated and sedated. precedex gtt infusing @ 1mcg. ETT intact to R lip, vent set to AC 16/550/5/60%. POX 100%. B/L breath sounds present. CT x3 intact to -20cm wall suction, drainage WNL, no air
leak present. epicardial AV wires intact, set to DDI 60, A mA 15, V mA 19. pt AV paced on monitor. B/L radial and DP pulses palpable. heart tones audible, +rub, +click. Levo gtt infusing @ 12mcg. left radial art line intact, SBP 90's. Amio gtt
infusing @ 1mg per orders. RIJ cordis + [place] intact w KVOs infusing. PAPs 60's/30's. CVP low 20's. last CI 1.09. leigh catheter intact, draining alesha urine. UO low, CT PA aware--instructed to give 250cc bolus of LR. absent bowel sounds. insulin gtt
infusing per glycemic protocol. all surgical sites stable. see worklist for full assessment, VS, and interventions.
[2023-07-11 19:01] LABS: Glucose - Point of Care 136 mg/dl (70-99)
[2023-07-11] MEDS: VERSED 0.5 MG IV ×4 (19:27→21:29)
[2023-07-11 19:46] LABS: Glucose - Point of Care 200 mg/dl (70-99)
[2023-07-11 20:01] LABS: Mixed Venous O2 Saturation 61.8 %
[2023-07-11 20:06] LABS: Hematocrit 36.6 % (39.0-52.0); Hemoglobin 12.7 g/dL (13.0-18.0); Platelet Count 162 10^3/uL (130-400)
[2023-07-11 20:11] LABS: B.E. -3.5 mmol/L; HCO3 22.1 mmol/L (21-28); Ionized Calcium 1.17 mMOL/L (1.15-1.33); O2 Saturation % 98.8 % (94-98); PCO2 41 mmHg (35-48); PO2 202 mmHg (83-108); Potassium 5.8 mMOL/L (3.5-5.1); pH 7.34 (7.35-7.45)
[2023-07-11] MEDS: CALCIUM CHLORIDE 10% SYRINGE IV ×2 (20:25)
[2023-07-11] MEDS: SENOKOT-S PO (20:34)
[2023-07-11] MEDS: CALCIUM CHLORIDE 10% SYRINGE 50 ML IV (20:36)
[2023-07-11] MEDS: CALCIUM CHLORIDE 10% SYRINGE 50 MG IV (20:36)
[2023-07-11 20:41] LABS: Magnesium 2.7 mg/dl (1.6-2.3)
[2023-07-11] MEDS: DOBUTREX 250 MG IV (21:21)
[2023-07-11 21:29] LABS: Glucose - Point of Care 158 mg/dl (70-99)
[2023-07-11] MEDS: ASPIRIN 300 MG RECTAL (21:50)
[2023-07-11 22:21] LABS: Mixed Venous O2 Saturation 47.5 %
[2023-07-11 22:31] LABS: B.E. -3.6 mmol/L; HCO3 21.5 mmol/L (21-28); O2 Saturation % 98.4 % (94-98); PCO2 38 mmHg (35-48); PO2 139 mmHg (83-108); pH 7.36 (7.35-7.45)
[2023-07-11 22:34] LABS: Ionized Calcium 1.36 mMOL/L (1.15-1.33)
[2023-07-11 22:36] LABS: Potassium 6.3 mMOL/L (3.5-5.1)
[2023-07-11] MEDS: ANCEF 5 IV (23:00)
[2023-07-11] MEDS: OFIRMEV 100 IV (23:00)
--- NOTE | 2023-07-11 23:00 | PTCARENOTE ---
acute assessment unchanged. pt remains intubated. FiO2 weaned to 40%. Veletri weaned to 0.01. POX 97%. CT output WNL. pt wakes for brief periods where he is agitated but does follow commands. pt c/o pain. PRN dilaudid given. orders received for
Ofirmev. Precedex weaned to 0.8mcg. several ABGs and MvO2s drawn and sent, CT PA aware of results. total 2 amps Na bicarb given. Ca+ repleted. pt remains AV paced on monitor via epicardial wires. occasionally has own rhythm on monitor for brief
periods where no P wave is visible and pt has RBBB. unable to wean Levo gtt, currently infusing @ 12mcg, SBP 90's. Amio gtt maintained per orders. Dobut gtt initiated @ 2114 for low CI/MvO2/UO. insulin gtt maintained per protocol. all surgical sites
stable. turning/repositioning pt Q2H and as needed.
[2023-07-11 23:04] LABS: Glucose - Point of Care 154 mg/dl (70-99)
[2023-07-11 23:11] LABS: Potassium 5.5 mmol/L (3.5-5.1)
[2023-07-11] MEDS: LASIX 20 MG IV (23:37)
[2023-07-12] VITALS (121 sets, daily range): BP systolic 50–143; BP diastolic 31–122; PULSE 2–80; BMI 45.1
[2023-07-12 01:01] LABS: Glucose - Point of Care 170 mg/dl (70-99)
[2023-07-12 01:07] LABS: B.E. -2.2 mmol/L; HCO3 22.4 mmol/L (21-28); Ionized Calcium 1.22 mMOL/L (1.15-1.33); O2 Saturation % 97.8 % (94-98); PCO2 37 mmHg (35-48); PO2 98 mmHg (83-108); pH 7.39 (7.35-7.45)
[2023-07-12 01:08] LABS: Mixed Venous O2 Saturation 36.7 %
[2023-07-12 01:27] LABS: Potassium 5.8 mmol/L (3.5-5.1)
--- NOTE | 2023-07-12 01:30 | PTCARENOTE ---
pt extubated to 6LNC without incident. POX 96%.
[2023-07-12 02:03] LABS: Glucose - Point of Care 164 mg/dl (70-99)
--- NOTE | 2023-07-12 02:09 | RESPNOTE ---
pt extubated at 0130 to 6 LPM NC but was placed on a NRBM due to mouth-breathing. Pt has poor mentation, poor cough effort and confused speech
[2023-07-12] MEDS: DEXTROSE 50% SYRINGE 12.5 GRAMS IV ×2 (02:27→18:11)
[2023-07-12] MEDS: NOVOLIN R 10 UNITS IV (02:27)
--- NOTE | 2023-07-12 03:00 | PTCARENOTE ---
pt very restless, does not take direction from nursing relating to sternal precautions. pt denies pain. pt remains AV paced on monitor via epicardial wires. pt on 20mg Levo gtt, SBP 70's-80's. CT PA aware. instructed to give 250cc bolus of LR. Amio
gtt maintained per protocol. Dobut gtt remains at 5mcg. CT PA aware of CI and MvO2 results. UO remains low, CT PA aware. Insulin gtt maintained per protocol. CT output WNL. all surgical sites stable. CT PA spoke w Dr. Reynoso--orders received for 2amps
bicarb, Milrinone gtt, 1 bag 25% albumin.
[2023-07-12 03:07] LABS: Glucose - Point of Care 224 mg/dl (70-99)
[2023-07-12 03:14] LABS: B.E. -7.3 mmol/L; HCO3 19.7 mmol/L (21-28); O2 Saturation % 98.8 % (94-98); PCO2 45 mmHg (35-48); PO2 189 mmHg (83-108); Potassium 5.1 mMOL/L (3.5-5.1); pH 7.25 (7.35-7.45)
[2023-07-12 03:15] LABS: Hematocrit 32.5 % (39.0-52.0); Hemoglobin 11.1 g/dL (13.0-18.0); Mean Corp Hgb Conc. 34.2 g/dL (33.0-37.0); Mean Corpuscular Hgb 32.8 pg (27.0-31.0); Mean Corpuscular Volume 96.2 fL (80.0-94.0); Mean Platelet Volume 10.3 fL (7.4-10.4); Platelet Count 139 10^3/uL (130-400); Red Blood Cell Count 3.38 10^6/uL (4.70-6.10); Red Cell Dist. Width 13.6 % (11.5-14.5); White Blood Cell Count 20.9 10^3/uL (4.8-10.8)
[2023-07-12 03:17] LABS: Mixed Venous O2 Saturation 47.8 %
[2023-07-12 03:20] LABS: Ionized Calcium 1.24 mMOL/L (1.15-1.33)
[2023-07-12 03:25] LABS: INR 1.51
[2023-07-12] MEDS: SODIUM BICARBONATE 100 MEQ IV ×3 (03:40→21:55)
[2023-07-12] MEDS: FLEXBUMIN 100 IV ×3 (03:43→20:13)
[2023-07-12 03:45] LABS: Blood Urea Nitrogen 25 mg/dl (9-20); Calcium 9.1 mg/dl (8.4-10.2); Carbon Dioxide 21 mmol/L (22-30); Chloride 105 mmol/L (98-107); Estimated Creatinine Clearance 42 ml/min; Glucose 200 mg/dl (70-99); Magnesium 2.5 mg/dl (1.6-2.3); Potassium 5.4 mmol/L (3.5-5.1); Sodium 137 mmol/L (135-145); eGFR 34.08
[2023-07-12] MEDS: SODIUM BICARBONATE 50 MEQ IV ×2 (04:06→18:04)
[2023-07-12 04:15] LABS: Glucose - Point of Care 157 mg/dl (70-99)
--- NOTE | 2023-07-12 04:30 | W.PN.CT ---
Today's Communication / Plan
-
-pod #1
-av paced @ 80. Underlying rhythm- ? chb with junctional escape and RBBB (pre-existing)- will ask EP to evaluate for pacer implant when possible. Left pt NPO just in case
-weaned off Flolan at midnight and extubated at 1:30 am
-gave 20 iv Lasix prior to extubation with minimal response. UO 300/365 in 12/24 hrs
-metabolic acidosis - s/p total 5 bicarb
-Lactic acid is 4.8- follow trend
-transient hypotension 70s-80s- required Levo 14-20. Started 25% Albumin x 3
-mVO2 47.8 at 3 am. Drips: Dobut 5, Milrinone 0.25, Levo 20, Amio 0.5, Precedex 0.2, Insulin
-CT output: L pleur 80/120, 2 meds 150/180; L FAROOQ 10/10 in 12/24 hrs
-Cr trended up - 2.1 today (1.2-1.3 preop)- follow
-follow K closely- 5.4 this am
-Echo this am (ordered)
-holding BB while on inotrops and Mg (elevated Cr)
-encourage IS, OOB
Assessment / Plan
-
- Severe bioprosthetic aortic valve stenosis/Severe mitral valve stenosis, secondary to previous repair and degeneration/calcification of the anterior leaflet (Type 3a)/ Mv-CAD-
- s/p Surgical aortic valve replacement [ ON-X mechanical]; Surgical chordal sparing mitral valve replacement [ ON-X mechanical]; CABG x 2 [in situ VARGHESE to LAD, aorta to RSVG to RPDA] by Dr. Reynoso on 07/11/23, pod #1
- Preop CHARLEEN: left ventricular ejection fraction preoperatively was 60%. He had severely elevated pulmonary hypertension with his PA pressures in the 70s to 80s beginning the case.
- Severe pulmonary hypertension, PA systolics in the 70s to 80s
- Acute on chronic diastolic congestive heart failure with respiratory failure requiring IV diuresis, PCWP markedly elevated to 39
- Previous open heart surgery in 2013 including aortic valve replacement with a bioprosthesis and mitral valve repair
- Multivessel coronary artery disease involving the proximal LAD
- Asthma
- Hypertension
- Hyperlipidemia
- Prediabetes (HgA1c 5.9)
- Class 3 obesity (BMI 42)
- Peripheral vascular disease
- Macular degeneration
- Pre-existing right bundle branch block and asystole with rare ventricular escape beats during cath preoperatively
- Acute postop blood loss anemia
- Acute postop atelectasis
- Acute postop hypovolemia with subsequent hypervolemia
- Acute postop hyperkalemia
- Acute postop metabolic acidosis
- ABHIJEET (Cr 1.2-1.3 preop)
Discussed patient care with: Nursing and Care Team
Subjective
Procedure
68 y/o M with PMHx significant for and MS s/p AVR and MVr in 2012 presented for an elective cath and found to be in fluid overload. Admitted for surgical optimization.
-
Date of Service: July 12, 2023
Objective Data
-
PT 19.5 Sec (11.4-14.6) H 07/11/23 16:27
INR 1.67 07/11/23 16:27
APTT 35.8 Sec (23.4-35.0) H 07/11/23 16:27
Vital Signs
Vital Signs
Temp Pulse Resp BP Pulse Ox
100.1 F 72 18 88/55 99
07/12/23 00:00 07/12/23 00:00 07/12/23 00:00 07/12/23 00:00 07/12/23 00:00
CT Intake/Output/Weight
07/11/23 07/11/23 07/12/23
06:59 18:59 06:59
Intake Total 526.4 / 1506.9 980.5 / 1506.9
Output Total 700 / 2200 135 / 390 255 / 390
Balance -700 / -2200 391.4 / 1116.9 725.5 / 1116.9
SaO2: 99
Physical Exam
-
General: Awake and Oriented
Cardiovascular: Regular rate & rhythm, No Murmurs and No Rub
Respiratory: Decreased Breath Sounds
Sternum: Stable
Incision: Clean, Dry and Intact
Extremities: Edema +1 (brown skin discoloration b/l. DPs by Doppler b/l)
Data Reviewed
-
Lab Results: Results Reviewed
Medications: Active Meds Reviewed
Chest X-Ray: Report Reviewed and Image Reviewed
ECG: Report Reviewed and Image Reviewed
[2023-07-12 04:31] LABS: B.E. 1.6 mmol/L; HCO3 27.2 mmol/L (21-28); O2 Saturation % 98.7 % (94-98); PCO2 46 mmHg (35-48); PO2 237 mmHg (83-108); Potassium 5.4 mMOL/L (3.5-5.1); pH 7.38 (7.35-7.45)
[2023-07-12 04:45] LABS: APTT 38.2 Sec (23.4-35.0)
[2023-07-12] MEDS: PRIMACOR 20 MG 100 IV (04:52)
[2023-07-12 05:11] LABS: Glucose - Point of Care 150 mg/dl (70-99)
[2023-07-12] MEDS: TYLENOL PO (05:18)
[2023-07-12 05:20] LABS: ALT (SGPT) 130 U/L (0-50); Albumin 3.4 g/dl (3.5-5.0); Alkaline Phosphatase 35 U/L (38-126); Direct Bilirubin 0.5 mg/dl (0.0-0.4); Total Bilirubin 0.9 mg/dl (0.2-1.3); Total Protein 5.2 g/dl (6.3-8.2)
[2023-07-12 05:21] LABS: Lactic Acid 4.8 mmol/L (0.7-2.0)
[2023-07-12 05:45] LABS: TSH 3.33 uIU/ml (0.47-4.68)
[2023-07-12] MEDS: ADRENALIN 258 MG IV (06:00)
[2023-07-12 06:13] LABS: AST (SGOT) 877 U/L (17-59); LDH 1922 U/L (120-246)
[2023-07-12] MEDS: ANCEF 5 IV ×2 (06:23→22:29)
[2023-07-12 07:08] LABS: Glucose - Point of Care 137 mg/dl (70-99)
[2023-07-12] MEDS: LEVOPHED 250 IV ×3 (07:21→22:17)
--- NOTE | 2023-07-12 07:44 | CARDSERVLU ---
Echocardiogram with Lumason completed after protocol screening completed. Allergies verified.
Patent IV site: ___LAC__
IV site flushed with 0.9% NaCl pre and post administration.
Diluted bolus method utilized to enhance visualization of ventricular johnson.
Total volume given: ___4_ mL
Patient tolerated all procedures well without complications.
[2023-07-12] MEDS: ALBUMIN 5% 250 IV ×2 (07:46→08:48)
[2023-07-12] MEDS: PITRESSIN 100 IV ×2 (07:54→22:24)
--- NOTE | 2023-07-12 08:00 | PTCARENOTE ---
Resumed care of patient. Walking rounds completed with previous RN. Pt assessed while he was lying in the bed. Pt difficult to understand. A&Ox4. Denies pain, shortness of breath, and nausea, but is very restless. Emotional support provided. 100% AV
paced on tele via temporary epicardial AV wires set to 80/20/19. BP supported with levophed, dobutamine, epi, and vaso gtts. CI 1.59. PA pressures 80s-90s/40s. CVP 20s. Bilateral radial pulses palpable. Bilateral DPPT pulses present via doppler.
+1generalized edema. POX 98% on 6L NC. Lungs coarse in b/l bases. Moist nonproductive cough noted, Breathing treatment given by RT. Left pleural chest tube to -20cm suction draining red fluid. Mediastinal x2 chest tubes y-sited to 1 atrium to -20cm
suction draining red fluid. No air leaks, tidaling, crepitus noted. Output WNL. Abdomen soft, round, obese, nontender. Hypoactive BS. Tolerating ice chips and sips of water. Mahmood catheter intact draining inadequate amounts of dark alesha urine with
sediment. Sternal incision approximated with skin glue, ELAINE. Chest tube dressing CDI. Right groin puncture site with blue plastic piece intact. Right knee incision approximated with skin glue, ELAINE. Left groin puncture site approximated with skin
glue, ELAINE. Left knee incision approximated with skin glue and ZAYNAB, CDI. Left knee FAROOQ drain draining scant amounts of red fluid. Right IJ cordis intact with swan floated to 50cm. Left radial brianna intact. All lines flushed, leveled, zeroed. Right
hand 18g PIV infusing insulin gtt per critical care glycemic protocol. Left AC 20g PIV intact. See MAR for medication administration. See worklist for complete nursing assessment. Plan of care reviewed and patient in agreement.
[2023-07-12 08:01] LABS: Hematocrit 30.7 % (39.0-52.0); Hemoglobin 10.2 g/dL (13.0-18.0); Mean Corp Hgb Conc. 33.2 g/dL (33.0-37.0); Mean Corpuscular Hgb 32.5 pg (27.0-31.0); Mean Corpuscular Volume 97.8 fL (80.0-94.0); Mean Platelet Volume 10.5 fL (7.4-10.4); Platelet Count 102 10^3/uL (130-400); Red Blood Cell Count 3.14 10^6/uL (4.70-6.10); Red Cell Dist. Width 13.7 % (11.5-14.5); White Blood Cell Count 18.6 10^3/uL (4.8-10.8)
[2023-07-12] MEDS: BACTROBAN 2% OINTMENT 1 APPLIC NASAL ×2 (08:01→21:28)
[2023-07-12 08:02] LABS: B.E. 0.7 mmol/L; HCO3 25.4 mmol/L (21-28); Ionized Calcium 1.17 mMOL/L (1.15-1.33); PCO2 40 mmHg (35-48); PO2 97 mmHg (83-108); Potassium 5.5 mMOL/L (3.5-5.1); Sodium 136 mMOL/L (136-145); pH 7.41 (7.35-7.45)
[2023-07-12] MEDS: VENTOLIN NEBULES 2.5 MG INH ×2 (08:04→11:12)
[2023-07-12 08:05] LABS: Mixed Venous O2 Saturation 48.8 %
[2023-07-12] MEDS: LIDOCAINE 4% PATCH 1 PATCH TOPICAL (08:10)
[2023-07-12] MEDS: PACERONE 200 MG PO ×2 (08:10→17:08)
[2023-07-12] MEDS: PROTONIX 40 MG PO (08:10)
[2023-07-12] MEDS: NEURONTIN 100 MG PO ×2 (08:10→17:09)
[2023-07-12] MEDS: LOW STRENGTH ASPIRIN 81 MG PO (08:10)
[2023-07-12] MEDS: SENOKOT-S 1 TABLET PO (08:10)
[2023-07-12] MEDS: SOLU-CORTEF 150 MG IV (08:11)
[2023-07-12 08:14] LABS: APTT 34.3 Sec (23.4-35.0); INR 1.55; PT 18.7 Sec (11.4-14.6)
--- NOTE | 2023-07-12 08:19 | W.PN.ANS.POP ---
Anesthesia Post Operative
- Anesthesia Post Op Note
Vital Signs Stable-See Nursing Note: Yes (remains on Epi/Vasopressin/Levophed/dobutamine/amiodarone gtts)
Airway Patent: Yes
Adequate Pain Control: Yes
Change in Mental Status: No
Current Postoperative Nausea & Vomiting: No
Anesthesia Complications: No
General Anesthetic Recall: No
Unplanned Admission: No
Post Op Hydration Adequate: Yes
[2023-07-12 08:24] LABS: ALT (SGPT) 149 U/L (0-50); Albumin 3.4 g/dl (3.5-5.0); Alkaline Phosphatase 34 U/L (38-126); Blood Urea Nitrogen 28 mg/dl (9-20); Calcium 8.7 mg/dl (8.4-10.2); Carbon Dioxide 27 mmol/L (22-30); Chloride 102 mmol/L (98-107); Direct Bilirubin 0.4 mg/dl (0.0-0.4); Estimated Creatinine Clearance 44 ml/min; Glucose 142 mg/dl (70-99); Potassium 5.3 mmol/L (3.5-5.1); Sodium 139 mmol/L (135-145); Total Bilirubin 0.8 mg/dl (0.2-1.3); Total Protein 5.2 g/dl (6.3-8.2); eGFR 34.08
[2023-07-12 08:25] LABS: Lactic Acid 5.1 mmol/L (0.7-2.0)
[2023-07-12 08:37] LABS: AST (SGOT) 978 U/L (17-59)
[2023-07-12 09:07] LABS: Glucose - Point of Care 160 mg/dl (70-99)
[2023-07-12] MEDS: CALCIUM CHLORIDE 10% SYRINGE 50 ML IV (09:20)
[2023-07-12] MEDS: CALCIUM CHLORIDE 10% SYRINGE 50 MG IV (09:20)
[2023-07-12] MEDS: NSS IV (09:32)
[2023-07-12 10:08] LABS: Glucose - Point of Care 167 mg/dl (70-99)
[2023-07-12] MEDS: ROXICODONE 5 MG PO ×2 (11:12→17:08)
[2023-07-12] MEDS: FLEXERIL 5 MG PO (11:12)
[2023-07-12 11:18] LABS: Glucose - Point of Care 173 mg/dl (70-99)
[2023-07-12] MEDS: BUMEX 1 MG IV (11:49)
[2023-07-12 11:52] LABS: Mixed Venous O2 Saturation 36.7 %
[2023-07-12 12:02] LABS: Glucose - Point of Care 141 mg/dl (70-99)
--- NOTE | 2023-07-12 12:16 | PTCARENOTE ---
Pt reassessed. Pt remains restless and anxious. ROBLES with equal strength throughout, needs a lot of reminders for sternal precautions. POX 100% on Bipap 25/19, 10L. Remains 100% AV paced via epicardial AV wires set to rate of 80. BP remains supported
with levophed, vaso, epi, and dobut. CI 1.27 and MVO2 36.7, CT INSPECTOR REPAIRER notified. PA pressures 70s/40s. CVP 25. +Rub, +click (unchanged). CT output WNL. UO low, CT INSPECTOR REPAIRER notified. Surgical sites stable. All lines remain intact.
[2023-07-12 12:35] LABS: ALT (SGPT) 203 U/L (0-50); AST (SGOT) 1074 U/L (17-59); Albumin 3.7 g/dl (3.5-5.0); Alkaline Phosphatase 30 U/L (38-126); Blood Urea Nitrogen 30 mg/dl (9-20); Calcium 9.7 mg/dl (8.4-10.2); Carbon Dioxide 20 mmol/L (22-30); Chloride 100 mmol/L (98-107); Estimated Creatinine Clearance 38 ml/min; Glucose 167 mg/dl (70-99); Potassium 5.2 mmol/L (3.5-5.1); Sodium 139 mmol/L (135-145); Total Protein 5.3 g/dl (6.3-8.2); eGFR 29.03
[2023-07-12 13:01] LABS: Glucose - Point of Care 120 mg/dl (70-99)
[2023-07-12 13:18] LABS: B.E. -5.5 mmol/L; HCO3 19.1 mmol/L (21-28); Ionized Calcium 1.18 mMOL/L (1.15-1.33); O2 Saturation % 98.8 % (94-98); PCO2 33 mmHg (35-48); PO2 177 mmHg (83-108); Potassium 4.9 mMOL/L (3.5-5.1); Sodium 136 mMOL/L (136-145); pH 7.37 (7.35-7.45)
[2023-07-12] MEDS: TYLENOL 1000 MG PO (13:56)
[2023-07-12] MEDS: FERRLECIT 110 MG IV (13:57)
--- NOTE | 2023-07-12 14:00 | PTCARENOTE ---
Left lower leg FAROOQ drain d/c by CT PA. Suture remains in place to d/c prior to discharge.
[2023-07-12 14:05] LABS: Glucose - Point of Care 100 mg/dl (70-99)
--- NOTE | 2023-07-12 14:15 | PTCARENOTE ---
Pt transported to EP lab for PPM placement.
--- NOTE | 2023-07-12 15:03 | W.PN.INTV ---
Today's Communication / Plan
Recommendations
s/p pacer
maintained on bipap post extubation
acidosis noted, repeat abg again -- if level declines despite repletion may consider renal consult
check lactate, cultures, trops
LFTs rising as well, consider CT AP
careful observation overnight
Assessment
-
Patient is a 68-year-old male with previous history of chronic diastolic congestive heart failure, history of bicuspid valve with severe AI status post bioprosthetic AVR, moderate MR status post mitral valve ring, obesity, ANTONIA on BiPAP,
hypertension, morbid obesity presenting with worsening stenosis of bioprosthetic aortic valve and moderate to severe mitral stenosis evaluated by cardiothoracic surgery. Underwent left heart catheterization demonstrating multivessel disease.
Underwent CABG, redo of his aortic valve and mitral valve on 07/11/23. He is perioperatively intubated, on Veletri for high PAPs and admitted to CVICU for further management.
CAD s/p AVR/MVR/CABG x 2 via redo sternotomy
Aortic and mitral stenosis, moderate to severe
Acute on chronic heart failure with preserved ejection fraction
Acute renal insufficiency
Mod-severe PH on Veletri
Perioperative mechanical ventilation
Developing metabolic acidosis
Conditions present CLUB MANAGER
Multivessel coronary artery disease
Aortic Stenosis Congenital S/P AVR
Hypertension
HLD
Type II DM
Eosinophilia
Asthma with severe obstruction on PFT
Obesity
Reflux
Macular degeneration
Severe ANTONIA, PSG 2017 AHI 113 BIPAP 25/19 cm water
Plan
S/p CABG redo AV/MVR POD #1
s/p pacer 07/11
Titrate off pressors per protocol
ECHO reviewed with high/normal function, h/o CHFpEF
RHC/LHC readings reviewed, prior to surgery
Eventual diuresis
PA catheter readings reviewed elevated wedge/PAP
Management of chest tubes per primary service
Pain control
RASS goal of 0 to -1
Intubated for procedure, extubated and on BIPAP
ABG(s) reviewed, acidosis developing, would repeat gas after bicarb replacement
May consider renal eval if acidosis noted responsive to pushes, reviewed with team
Check lactate, cultures, trops
CXR previously reviewed without acute process, repeat pending post pacer placement
Maintain supplement oxygen as needed, no history of home use
Resume inhalers
Prior history of pulmonary disease noted
Prior PFTs reviewed with severe obstruction
Resume home inhalers/Can add nebulizers if needed
Aspiration precautions
Encouraged incentive spirometry, OOB/ambulation/early mobility
Advance diet as tolerated following extubation
GI prophylaxis if indicated for mechanical ventilation >48 hours
Monitor critical I/O's
Mahmood/chest tube output
Hb/platelets postoperatively stable
Trend CBC for now
Can transfuse if indicated for Hb <7, plt <50 in surgical patients
DVT prophylaxis including SCDs
Diagnostic Data
Chest X-Ray: 07/07/23- No acute cardiopulmonary process.
CT Scan: CAP 07/09/23- 1. Mild aortic atherosclerotic changes. Negative for aortic aneurysmal dilation. At least moderate coronary artery calcification.
2. Incidental dilation of the left external iliac vein as above, 2.8 cm diameter. Etiology of this is indeterminate, but present dating back to 2017 with a slight interval increase in size.
3. No acute pulmonary process. Two subcentimeter nodules at the base of the right lower lobe which are highly likely to have a benign etiology as they were present and minimally smaller in size on CT obtained August 2016.
4. Mild mediastinal adenopathy, indeterminate etiology.
5. Hepatic fatty infiltration.
6. Cholelithiasis.
7. Moderate fat-containing right inguinal hernia. Small amount of traction effect against the right side of the urinary bladder secondary to the inguinal hernia.
RHC/LHC 07/07/23- RA (m) : 29 - RV (s/d,m) : 75/25, 29 - PA (s/d, m) : 78/47, 60 - PCWP (m) : 39
PA saturation: 62.2% on room air - AO saturation: 87.3% on room air - RA saturation: 63.3% on room air
Cardiac Output : 5.62 L/min - Cardiac Index : 2.5 L/min/m-2
Systemic vascular resistance: 939 dsc^(-5) - Pulmonary vascular resistance: 3.73 hayden unit
Echo: CHARLEEN 03/23/23- Normal left ventricular size and function. Moderate concentric left ventricular hypertrophy. Left ventricular ejection fraction is 70%. Normal right ventricular size and function.
Moderately dilated left atrium. Mildly dilated right atrium. A mitral valve ring is in place. There is evidence of a prior repair. There is thickening with moderate to severe mitral stenosis. The repair leaflet does have significant
thickening. There is mild to moderate regurgitation. There is no clear paravalvular leak. Mean gradient across the mitral valve 11 mmHg. A bioprosthetic aortic valve is in place. The leaflets are thickened and the orifice has decreased. Mean
gradient across the aortic valve was 34 mmHg. There is mild aortic regurgitation present. This is suggestive of moderate to
severe bioprosthetic stenosis. Mild to moderate tricuspid regurgitation.
PFT's: 07/09/23- FEV1 0.96L 33%, FVC 2.29L 58%, ratio 42--severe
Reports and relevant images were personally reviewed.
-----
Critical care time 35 mins -- this includes review of history, physical exam, medications, hemodynamic/ventilator parameters, laboratory data, imaging and discussion with house staff, pharmacy, respiratory therapy, interventional radiology tech, and nursing.
Subjective Dataa
Subjective Data
Date of Service:
Date of Service: July 12, 2023
Chief Complaint: Registration Scheduling Specialist Follow Up
Subjective:
s/p pacer, on BIPAP
c/o pressure in his chest
Objective Data
Data Reviewed
Vital Signs / I&O / Oxygen:
Vital Signs
Temp Pulse Resp BP Pulse Ox
98.3 F 80 21 101/53 96
07/12/23 14:00 07/12/23 14:35 07/12/23 14:35 07/12/23 14:15 07/12/23 14:35
Intake and Output
07/11/23 07/12/23 07/13/23
06:59 06:59 06:59
Intake Total 2476.3 / 2601.4 1694.7 / 1694.7
Output Total 2200 / 2199 740 / 805 358 / 358
Balance -2200 / -2200 1736.3 / 1796.4 1336.7 / 1336.7
SaO2 [A/C] 99
SaO2 [SIMV] 100
SaO2 96
Nasal Cannula flow liters per 6
minute
Physical Exam
General: Comfortable and Other (NAD, obese)
HEENT: Normocephalic, Anicteric and Moist Mucous Membranes
Cardiovascular: S1-S2, Regular Rhythm and Peripheral Edema (chronic venous stasis changes noted b/l)
Respiratory: Clear (overall decreased), Non-Labored Respirations, Chest Tube and Other (PA cath)
GI: Soft, Non Distended and Non Tender
Neurology: Awake, Alert, Oriented, AO x 3 and No Motor Deficits
Skin: Warm and Dry
Labs/Micro/Reports
Lab Data
07/12/23 07:36
Laboratory Results
07/11/23 07/11/23 07/11/23
16:27 18:01 20:05
PT 19.5 H
INR 1.67
APTT 35.8 H
pH 7.28 L 7.35 7.34 L
pCO2 47 42 41
pO2 169 H 228 H 202 H
HCO3 22.1 23.2 22.1
O2 Delivery Level Vent
07/11/23 07/12/23 07/12/23
21:58 01:01 03:06
PT 18.0 H
INR 1.51
APTT
pH 7.36 7.39
pCO2 38 37
pO2 139 H 98
HCO3 21.5 22.4
O2 Delivery Level 40% fio2
07/12/23 07/12/23 07/12/23
03:07 04:23 07:35
PT 18.7 H
INR 1.55
APTT 38.2 H 34.3
pH 7.25 L 7.38
pCO2 45 46
pO2 189 H 237 H
HCO3 19.7 L 27.2
O2 Delivery Level Not Reportable
07/12/23 07/12/23
07:36 13:05
PT
INR
APTT
pH 7.41 7.37
pCO2 40 33 L
pO2 97 177 H
HCO3 25.4 19.1 L
O2 Delivery Level
--- NOTE | 2023-07-12 16:18 | ITS.CL.PACE ---
Corporate Manager - Pacemaker Implant
Pacemaker Implant
Procedure Report:
PACEMAKER IMPLANT REPORT
Primary Care Provider: Dr. Solomon Key
Primary dietary services manager: Dr Susanna Thurman
Date of Procedure: July 12, 2023
Procedure:
Implantation of dual-chamber permanent pacemaker utilizing the left bundle branch for conduction system pacing
Indication/Diagnosis:
Non-reversible symptomatic bradycardia due to third degree atrioventricular block
Complex medical history which most recently includes remote valvular surgery (AVR for severe and bicuspid AV 05/22/12 as well as MV ring repair for moderate MR 05/22/12). More recently he was admitted with heart failure with preserved ejection
fraction and has been found to have progressive valvular disease (prosthetic aortic valve stenosis as well as mitral valve stenosis) and significant coronary artery disease for which she underwent surgical aortic valve replacement [ ON-X
mechanical]; Surgical chordal sparing mitral valve replacement [ ON-X mechanical]; CABG x 2 [in situ VARGHESE to LAD, aorta to RSVG to RPDA] on 07/11/23. He has developed hemodynamic compromising complete heart block and is referred today for
implantation of dual chamber permanent pacemaker
After informed consent was obtained, 'time out' was called and confirmed, the patient was prepped and draped in a sterile fashion. Lidocaine with epi was used for local anesthesia. Central venous access was obtained via subclavian venipuncture. An
incision was made along the left chest and a pre-pectoral pocket was formed. Using a Seldinger technique and peel-away sheaths, the pacing leads were placed under fluoroscopic guidance.
Fluoroscopy was used to determine likely anatomic site for left bundle branch pacing. [employer] C315 sheath was used to deliver the [employer] 3830 Selectsecure pacing lead with the helix exposed just exposed from the sheath tip during continuous
monitoring when pacemapping the septum during gentle clockwise rotation to obtain a paced QRS morphology of a W pattern in lead V1. Once the suspected optimal site was identified, lead deployment was performed with several rapid rotations as paced
QRS morphology was intermittently monitored until a paced QRS complex in lead V1 demonstrated development of an R wave (qR).
Unipolar pacing impedance dropped by approximately 100 ohms suggesting it had reached the left ventricular subendocardial.
There is stable positive deflection VEgm injury current throughout lead position and at end of case suggesting there was no perforation through the septum into the LV cavity.
Final unipolar pacing impedance is 1000 Ohms
Unipolar pacing threshold is stable at 1V @ 0.4 ms.
The patient had pre-existing accelerated junctional rhythm with right bundle branch block morphology and QRS duration of 140 ms.
Final conduction system paced QRS complex duration is 93 ms
LVAT is 83 ms and peak V5 -> peak V1 timing is 31 ms
Right atrial lead was placed at the RAA.
Once testing (see below) showed adequate and stable function, the leads were secured using the suture sleeves. The pocket was liberally irrigated with antibiotic solution. The leads were connected to the generator header and the leads and
generator were placed within the pocket. Fluoroscopy confirmed stable lead position. The pocket was closed in the typical fashion.
Antibiotic pouch was used
Fluoroscopy was used to guide lead placement.
IMPLANTS:
Medtronic [id number], SN: [id number], Left Pectoral
RA: Medtronic 5076-45, SN: [id number], RAA
RV: Medtronic 3830 , SN:[id number], Interventricular septum at LBB
DEVICE TESTING:
Sensing: RA 1.9 mV, RV 9.5 mV
Capture: RA 1.5 V@0.4ms, RV 1 V@0.4ms
Ohms: RA 551, RV 1093
FINAL PROGRAMMING
Atif Pacing: DDDR 80-130 ppm
COMPLICATIONS:
None
CONCLUSIONS:
Successful implant of dual chamber permanent pacemaker utilizing Left Bundle Branch conduction system capture for pacing.
RECOMMENDATIONS:
Post-op care (tele, CXR, IV abx)
AV synchronous pacing has been restored. This may improve overall hemodynamics and allow for down titration/weaning of intravenous pressors.
He has received significant volume resuscitation and would ultimately benefit from diuresis once blood pressure improves and stabilizes.
Copy to:
Dr. Solomon Key
Dr Susanna Thurman
--- NOTE | 2023-07-12 16:30 | PTCARENOTE ---
Pt received back from pipelines laborer s/p PPM insertion. Pt remains oriented and occasionally restless. Emotional support and education regarding patient's condition provided. POX 97% on bipap 25/19 10L, RT placed on 6L. 100% AV paced via PPM set to DDDR
80-130. BP remains supported with levophed, epi, vaso. Left leg ZAYNAB d/c. Left upper chest wall PPM site covered with Aquacel & pressure dressing CDI. All lines remain intact. Mahmood with adequate UO, alesha in color. CT output WNL. CT WEARING APPAREL PRESSER at bedside.
Post op labs, EKG, and CXR obtained.
[2023-07-12 16:51] LABS: B.E. -9.7 mmol/L; Ionized Calcium 1.23 mMOL/L (1.15-1.33); PCO2 33 mmHg (35-48); PO2 138 mmHg (83-108); Potassium 4.9 mMOL/L (3.5-5.1); Sodium 136 mMOL/L (136-145); pH 7.29 (7.35-7.45)
[2023-07-12 16:51] LABS: Mixed Venous O2 Saturation 46.9 %
[2023-07-12 16:54] LABS: HCO3 15.9 mmol/L (21-28)
[2023-07-12 16:54] LABS: Hematocrit 30.5 % (39.0-52.0); Hemoglobin 10.4 g/dL (13.0-18.0); Mean Corp Hgb Conc. 34.1 g/dL (33.0-37.0); Mean Corpuscular Volume 96.8 fL (80.0-94.0); Mean Platelet Volume 10.6 fL (7.4-10.4); Platelet Count 125 10^3/uL (130-400); Red Blood Cell Count 3.15 10^6/uL (4.70-6.10); Red Cell Dist. Width 14.2 % (11.5-14.5); White Blood Cell Count 25.4 10^3/uL (4.8-10.8)
[2023-07-12 17:02] LABS: APTT 52.2 Sec (23.4-35.0)
[2023-07-12 17:09] LABS: Alkaline Phosphatase 34 U/L (38-126); Blood Urea Nitrogen 32 mg/dl (9-20); Calcium 9.5 mg/dl (8.4-10.2); Carbon Dioxide 16 mmol/L (22-30); Chloride 101 mmol/L (98-107); Estimated Creatinine Clearance 35 ml/min; Glucose 121 mg/dl (70-99); Potassium 4.8 mmol/L (3.5-5.1); Sodium 139 mmol/L (135-145); Total Bilirubin 1.8 mg/dl (0.2-1.3); Total Protein 5.6 g/dl (6.3-8.2); eGFR 26.37
[2023-07-12] MEDS: SOLU-CORTEF 50 MG IV ×2 (17:09→23:09)
[2023-07-12 17:17] LABS: Lactic Acid 12.1 mmol/L (0.7-2.0)
[2023-07-12 17:22] LABS: ALT (SGPT) 812 U/L (0-50)
[2023-07-12 17:28] LABS: AST (SGOT) 1811 U/L (17-59)
[2023-07-12 17:30] LABS: INR 2.54; PT 27.6 Sec (11.4-14.6)
[2023-07-12 17:56] LABS: Osmolality Urine 357 mOsm/kg (300-900)
[2023-07-12] MEDS: SODIUM BICARBONATE 1150 MEQ IV (17:56)
[2023-07-12 17:57] LABS: Urine Albumin 2+ (Neg - Trace); Urine Bilirubin 1+ (Negative); Urine Character Very Cloudy (Clear); Urine Color Yellow; Urine Glucose Negative (Negative); Urine Ketone Trace (Negative); Urine Leukocyte 1+ (Negative); Urine Nitrite Negative (Negative); Urine Occult Blood 4+ (Negative); Urine Specific Gravity 1.025 (<1.030); Urine Urobilinogen Negative (Neg - 1+)
--- NOTE | 2023-07-12 18:00 | PTCARENOTE ---
CT HUMAN PERFORMANCE CONSULTANT notified of all critical labs
--- NOTE | 2023-07-12 18:00 | PTCARENOTE ---
CT WOOD STAINER and Dr. Reynoso at bedside to evaluate patient. per Dr. Reynoso, amio turned off. Stat meds administered per orders.
[2023-07-12] MEDS: CALCIUM CHLORIDE 10% SYRINGE 1000 MG IV (18:05)
[2023-07-12 18:06] LABS: Urine Bacteria Many (Negative); Urine Red Blood Cell 60-70 /HPF (0-2)
[2023-07-12 18:09] LABS: Glucose - Point of Care 69 mg/dl (70-99)
[2023-07-12 18:23] LABS: HCO3 16.2 mmol/L (21-28); Ionized Calcium 1.33 mMOL/L (1.15-1.33); O2 Saturation % 98.3 % (94-98); PCO2 28 mmHg (35-48); PO2 112 mmHg (83-108); Potassium 5.2 mMOL/L (3.5-5.1); Sodium 136 mMOL/L (136-145); pH 7.37 (7.35-7.45)
[2023-07-12 18:24] LABS: Mixed Venous O2 Saturation 41.5 %
[2023-07-12 18:27] LABS: Glucose - Point of Care 98 mg/dl (70-99)
[2023-07-12 18:46] LABS: Lactic Acid 14.2 mmol/L (0.7-2.0)
[2023-07-12 18:51] LABS: Blood Urea Nitrogen 34 mg/dl (9-20); Calcium 10.3 mg/dl (8.4-10.2); Carbon Dioxide 14 mmol/L (22-30); Chloride 100 mmol/L (98-107); Estimated Creatinine Clearance 38 ml/min; Glucose 184 mg/dl (70-99); Potassium 5.1 mmol/L (3.5-5.1); Sodium 138 mmol/L (135-145); eGFR 29.03
--- NOTE | 2023-07-12 19:00 | PTCARENOTE ---
IR at bedside to place HD cath.
--- NOTE | 2023-07-12 19:13 | PTCARENOTE ---
2units FFP infused per orders.
[2023-07-12] MEDS: DILAUDID 0.5 MG IV (19:17)
[2023-07-12 19:41] LABS: Glucose - Point of Care 140 mg/dl (70-99)
[2023-07-12 19:54] LABS: Mixed Venous O2 Saturation 38.2 %
[2023-07-12 19:54] LABS: B.E. -10.5 mmol/L; Ionized Calcium 1.19 mMOL/L (1.15-1.33); O2 Saturation % 97.5 % (94-98); PCO2 28 mmHg (35-48); PO2 100 mmHg (83-108); Potassium 5.7 mMOL/L (3.5-5.1); Sodium 137 mMOL/L (136-145); pH 7.32 (7.35-7.45)
[2023-07-12 19:55] LABS: HCO3 14.4 mmol/L (21-28)
[2023-07-12 20:04] LABS: INR 2.98; PT 31.4 Sec (11.4-14.6)
--- NOTE | 2023-07-12 20:05 | PTCARENOTE ---
Assumed care of patient at 1900. Patient found in bed at time of assessment. Patient is AOx4, speech is somewhat garbled, follows commands appropriately, limited movement of extremities 2/2 immobilizer from PPM placement and newly placed femoral
central line. Lung sounds are diminished throughout, patient is on Bipap with 6L O2 saO2 at 96%. Heart sounds have a RR&R although distant patient is 100% AV paced with DDDR 80-130 settings on the monitor. Patient has normal palpable radial pulses
and doppler pedals. There is +2 generalized anasarca noted. Patient has hypoactive BS, a round/distended abdomen, and reports flatus. There in an indwelling urinary catheter present with alesha urine low UOP noted during day. Patient has a sternal
incision approx with surg adhesive ELAINE, an ABD dressing over CT wounds that is CDI, a LLE incision approx with surg adhesive RAILWAY SIGNAL ELECTRICIAN, L upper chest aquacell dressing as well as pressure dressing from PPM that is CDI, a L groin puncture that is approx
with surg adhesive ELAINE. There is also a 4x4 gauze dressing over newly place L femoral line for planned CRRT. Patient has the following lines: R IJ cordis with swan floated to 50, L radial Cassandra, a 20G L AC, and R hand 18G. Patient is receiving the
following gtts: Levo@10, Vaso@0.04, Epi @3, Cordis/VIP KVO. Vital signs as follows: T-98.6 RR-20 BP-103/65 P-80 CI-1.46 PAP-89/50 CVP-23. Given progressively worsening liver/kidney function patient is awaiting orders to initiate CRRT. Patient c/o
pain/discomfort in abdomen given 0.5 dilaudid. Will continue to monitor and inititate CRRT when orders received.
--- NOTE | 2023-07-12 20:13 | W.PN.UPDATE ---
Update Note
Progress Note Update
Consulted emergently for refractory acidosis, hyperK, ABHIJEET. Na 140/K5.6/JSH216/Cr 2.7. Lactate is 14.2. Patient is making minimal urine and has required multiple bicarb pushes on top of a bicarb gtt. Femoral HD line has been placed. I will initiate
CRRT emergently overnight.
[2023-07-12 20:14] LABS: Albumin 3.9 g/dl (3.5-5.0); Alkaline Phosphatase 33 U/L (38-126); Blood Urea Nitrogen 34 mg/dl (9-20); Carbon Dioxide 12 mmol/L (22-30); Chloride 100 mmol/L (98-107); Estimated Creatinine Clearance 34 ml/min; Glucose 125 mg/dl (70-99); Potassium 5.6 mmol/L (3.5-5.1); Sodium 140 mmol/L (135-145); Total Bilirubin 2.8 mg/dl (0.2-1.3); Total Protein 5.4 g/dl (6.3-8.2)
[2023-07-12 20:25] LABS: ALT (SGPT) 1515 U/L (0-50)
[2023-07-12 20:36] LABS: AST (SGOT) 2459 U/L (17-59)
[2023-07-12 20:49] LABS: Glucose - Point of Care 107 mg/dl (70-99)
[2023-07-12] MEDS: SODIUM BICARBONATE 150 MEQ IV (21:14)
--- NOTE | 2023-07-12 21:15 | PTCARENOTE ---
3 amps sodium bicarb administered for increasing acidosis. Repleted calcium. Orders received for CRRT in process of setting up with Nurse Educator.
[2023-07-12] MEDS: RFP-400 Hemodialysis Solution (K+ 2 mEq/L) 20000 ML CRRT-IRR (21:23)
[2023-07-12] MEDS: CALCIUM CHLORIDE 10% SYRINGE 60 MG IV (21:26)
[2023-07-12] MEDS: SENOKOT-S PO (21:29)
[2023-07-12 21:33] LABS: Glucose - Point of Care 104 mg/dl (70-99)
[2023-07-12 21:38] LABS: B.E. -6.4 mmol/L; HCO3 17.6 mmol/L (21-28); Ionized Calcium 1.15 mMOL/L (1.15-1.33); O2 Saturation % 98.3 % (94-98); PCO2 29 mmHg (35-48); PO2 112 mmHg (83-108); Potassium 5.7 mMOL/L (3.5-5.1); Sodium 139 mMOL/L (136-145); pH 7.39 (7.35-7.45)
[2023-07-12 21:39] LABS: Mixed Venous O2 Saturation 41.1 %
[2023-07-12 21:49] LABS: PT 31.6 Sec (11.4-14.6)
[2023-07-12 21:54] LABS: Albumin 3.9 g/dl (3.5-5.0); Alkaline Phosphatase 31 U/L (38-126); Blood Urea Nitrogen 36 mg/dl (9-20); Calcium 9.7 mg/dl (8.4-10.2); Carbon Dioxide 17 mmol/L (22-30); Chloride 99 mmol/L (98-107); Estimated Creatinine Clearance 33 ml/min; Glucose 92 mg/dl (70-99); Potassium 5.5 mmol/L (3.5-5.1); Sodium 142 mmol/L (135-145); Total Bilirubin 3.2 mg/dl (0.2-1.3); Total Protein 5.4 g/dl (6.3-8.2); eGFR 24.13
[2023-07-12 22:03] LABS: Lactic Acid 17.3 mmol/L (0.7-2.0)
[2023-07-12 22:06] LABS: ALT (SGPT) 2132 U/L (0-50)
[2023-07-12 22:15] LABS: AST (SGOT) 3160 U/L (17-59)
[2023-07-12] MEDS: VELETRI 50 MCG INH (22:18)
[2023-07-12] MEDS: VELETRI 50 ML INH (22:18)
--- NOTE | 2023-07-12 22:30 | PTCARENOTE ---
CRRT initiated at approx 2130. CRRT settings according to bobbin presser orders see worklist for details. CRRT running without incident. Patient started on Veletri via inhalation by RT for increasing PAP. Instructed to maintain patient in upright
position given possible uneven administration of medication. PAP, CVP remain high, systemic blood pressure remains low instructed to utilize cuff pressures given questionable A line. Will continue to monitor.
[2023-07-12] MEDS: PACERONE PO (23:08)
[2023-07-12] MEDS: NEURONTIN PO (23:09)
[2023-07-12 23:30] LABS: Glucose - Point of Care 54 mg/dl (70-99)
[2023-07-12] MEDS: MORPHINE SULFATE 1 MG IV (23:30)
[2023-07-12 23:31] LABS: Mixed Venous O2 Saturation 41.9 %
[2023-07-12 23:32] LABS: Glucose - Point of Care 98 mg/dl (70-99)
[2023-07-12 23:32] LABS: B.E. -4.5 mmol/L; HCO3 20.1 mmol/L (21-28); Ionized Calcium 1.22 mMOL/L (1.15-1.33); O2 Saturation % 99.3 % (94-98); O2 Therapy bipap; PCO2 34 mmHg (35-48); PO2 171 mmHg (83-108); Potassium 5.1 mMOL/L (3.5-5.1); Sodium 140 mMOL/L (136-145); pH 7.38 (7.35-7.45)
[2023-07-12 23:57] LABS: INR 3.46; Lactic Acid 14.9 mmol/L (0.7-2.0); PT 35.4 Sec (11.4-14.6)
[2023-07-13] VITALS (19 sets, daily range): BP systolic 62–177; BP diastolic 33–128
[2023-07-13 00:01] LABS: Albumin 3.9 g/dl (3.5-5.0); Alkaline Phosphatase 32 U/L (38-126); Blood Urea Nitrogen 37 mg/dl (9-20); Calcium 9.8 mg/dl (8.4-10.2); Carbon Dioxide 21 mmol/L (22-30); Chloride 99 mmol/L (98-107); Estimated Creatinine Clearance 34 ml/min; Glucose 87 mg/dl (70-99); Sodium 142 mmol/L (135-145); Total Bilirubin 3.2 mg/dl (0.2-1.3); Total Protein 5.4 g/dl (6.3-8.2)
[2023-07-13] MEDS: NEURONTIN PO (00:15)
[2023-07-13 00:27] LABS: ALT (SGPT) 2664 U/L (0-50)
--- NOTE | 2023-07-13 00:30 | PTCARENOTE ---
Patient increasingly agitated/restless. Attempting to pull off Bipap. Patient reports that they feel trapped and want to get up. CT PA advised. Received orders to resume precedex gtt at 0.2.
[2023-07-13] MEDS: PRECEDEX 100 IV (00:31)
[2023-07-13 00:38] LABS: AST (SGOT) 4455 U/L (17-59)
[2023-07-13] MEDS: ATIVAN 0.5 MG IV ×2 (00:50→01:09)
[2023-07-13 01:08] LABS: Glucose - Point of Care 101 mg/dl (70-99)
[2023-07-13 01:16] LABS: B.E. -6.7 mmol/L; HCO3 19.2 mmol/L (21-28); Ionized Calcium 1.18 mMOL/L (1.15-1.33); O2 Saturation % 98.9 % (94-98); PCO2 39 mmHg (35-48); PO2 171 mmHg (83-108); Potassium 5.4 mMOL/L (3.5-5.1); Sodium 140 mMOL/L (136-145)
[2023-07-13 01:17] LABS: Mixed Venous O2 Saturation 41.1 %
[2023-07-13 01:20] LABS: O2 Therapy BIPAP
--- NOTE | 2023-07-13 01:20 | PTCARENOTE ---
Patient anxiety, agitation and restlessness continues to exacerbate. Patient received ativanx2 without relief of symptoms. CT PA at bedside. Patient to receive 3 additional amps of bicarb.
[2023-07-13 01:29] LABS: INR 3.29; PT 33.9 Sec (11.4-14.6)
[2023-07-13 01:30] LABS: APTT 45.7 Sec (23.4-35.0)
[2023-07-13 01:32] LABS: AST (SGOT) 5756 U/L (17-59); Albumin 3.9 g/dl (3.5-5.0); Alkaline Phosphatase 36 U/L (38-126); Blood Urea Nitrogen 35 mg/dl (9-20); Calcium 9.6 mg/dl (8.4-10.2); Carbon Dioxide 19 mmol/L (22-30); Chloride 100 mmol/L (98-107); Estimated Creatinine Clearance 33 ml/min; Glucose 90 mg/dl (70-99); Potassium 5.3 mmol/L (3.5-5.1); Sodium 143 mmol/L (135-145); Total Bilirubin 3.5 mg/dl (0.2-1.3); Total Protein 5.5 g/dl (6.3-8.2); eGFR 24.13
[2023-07-13 01:40] LABS: ALT (SGPT) 3435 U/L (0-50)
--- NOTE | 2023-07-13 02:00 | W.PN.ANESINT ---
Anesthesia Intubation Note
- Intubation Note
Intubation Note:
Diagnosis: cardiac arrest
Blade: gidescope 4
Tube Size: 8
Depth: 23cm
Side Taped: right
Drugs Used: none
Grade View: I
EtCO2 Present: yes
Atraumatic: yes
Attempts: 1
Insertion Start and Stop Time:
SaO2 Pre: OLEKSANDR
SaO2 Post:OLEKSANDR
Glidescope Used: yes
Other Airway Adjustments: no
Pre-Oxygenated: yes - ambu - BMV
Portable Chest X-Ray: to follow
RSI:
Suctioned: yes - pink frothy
Bilateral Breath Sounds Confirmed: yes
Vent Settings:
Settings per _X__Attending Physician
--- NOTE | 2023-07-13 02:26 | W.PN.UPDATE ---
Update Note
Progress Note Update
Gustavo Esteves progressed into multi system organ failure this morning with shock liver, acute renal failure, continued severe pulmonary hypertension, and progressive respiratory failure. He underwent urgent PPM insertion with the hope of restoring
A-V synchrony as he lost atrial capture on his temporary atrial pacing wires. This did improve his blood pressure however his PA pressures remained in the higher 70s-80s. His lab work continued to worsen demonstrating progressive liver failure,
renal failure, and acidosis. His medications were changed with uptitration of vasopressing, addition of inotropic support, and insertion of a temporary dialysis line. CRRT was initiated given the continued worsening acidosis as well as evidence of
hyperkalemia. Multidisciplinary discussion was held between myself, pharmacy and respiratory to see if reinstituting inhaled flolan would help - this was restarted. Over the evening time, he became increasingly agitated, and had only small
improvement in his metabolic state. His hypotension started to progress along with agitation. He become unresponsive and progressed into cardiopulmonary collapse/arrest. He underwent emergent reintubation and manual ventilation with multiple rounds
of CPR and chemical coding was initiated. I was present toward the mid portion of his ACLS resuscitation. He underwent 30 mins of CPR without ROSC. Given the complexity of his pathology, multi system organ failure, no evidence of bleeding or cardiac
tamponade, I decided that emergent sternotomy reopening at the beside would not have improved his outcome. I elected to stop additional resuscitative measures. Time of 0218 on 07/13/23. I reviewed the events of this morning including the
cardiopulmonary arrest with his family in person.
--- NOTE | 2023-07-13 02:28 | W.PN.DEATH ---
Pronouncement of
-
Called to see patient to pronounce.
No spontaneous heart tones or respirations noted.
Patient not responsive to verbal stimuli.
Patient is pronounced .
Time of : 02:18
Date of : 07/13/23
Cause of : multisystem organ failure resulting in respiratory arrest
Family Notified: Yes
--- NOTE | 2023-07-13 02:32 | RESPNOTE ---
pt coded and CPR performed for about [address] Reynoso prounced the pt.
--- NOTE | 2023-07-13 02:35 | W.PN.UPDATE ---
Update Note
Progress Note Update
-pt with severe pulmonary hypertension, progressive metabolic acidosis, lactic acidosis, renal and liver failure, hyperkalemia, requiring pressors and inotrops. Acidosis was being corrected with bicarb and CRRT overnight. Pt was getting Flolan via
bipap for pHTN. He became more hypotensive and agitated overnight, requiring increase of Levo and Vasopressin and then became unresponsive at 1:45 am. Code was called and cpr started. Pt was emergently intubated and given multiple doses of Epi,
bicarb, and Calcium but was unable to achieve ROSC. After 30 min of code, pt was pronounced at 2:18am by Dr. Reynoso who was present at bedside. I spoke with pt's sister, Felicia, over the phone. Dr. Reynoso spoke with the family when they came in.
-I spoke with director nursing service, Dalton Johnson, and Sunshine Dale from [facility].
[2023-07-13 02:36] LABS: Lactic Acid 14.5 mmol/L (0.7-2.0)
--- NOTE | 2023-07-13 06:27 | PTCARENOTE ---
At approx 0145 code 9 called for patient in 5. Suddenly unresponsive and without a pulse. CPR initiated which was sustained for approximately 30 minutes. MODESTA HEMPHILL and Dr. Reynoso at bedside. Patient defibrillated twice without conversion. Unresponsive
to epi, bicarb, calcium. No pulse identified on any check. Patient pronounced at 0218. See code sheet for more information.
--- NOTE | 2023-07-18 12:19 | PN.CDI ---
CDI
- -
CDI:
Physician Documentation Request
Admit Date: 07/07/23 09:29
Dear Doctor/CVPA,
Please review the following and provide your response in the progress notes.
Clinical Indicators:
Pt admitted with CHpEF exacerbation s/p CABGx2/AVR/MVR on 07/10
Update note 07/12 ,' -pt with severe pulmonary hypertension, progressive metabolic acidosis, lactic acidosis, renal and liver failure.. requiring increase of Levo and Vasopressin and then became unresponsive at 1:45 am...'
Clarify which of the following accurately represents the acuity of the (Liver Failure ).
Acute
Acute on Chronic
Other (please specify)
Use of terms such as suspected, likely, concern for, or probable (associated with a specific diagnosis that is being evaluated, monitored, or treated as if it exists) are acceptable and can be coded in the inpatient setting, when documented at the
time of discharge.
Thank you,
Jayshree Lorenzana RN
CDI Specialist
[place] [facility]
Please use your independent medical judgment in providing your response.
--- NOTE | 2023-07-18 12:24 | PN.CDI ---
Addendum entered and electronically signed by Sawyer Clark PA-C 07/18/23 13:15:
Pt with acute hypoxic respiratory failure
Original Note:
CDI
- -
CDI:
Physician Documentation Request
Admit Date: 07/07/23 09:29
Dear Doctor/CVPA,
Please review the following and provide your response in the progress notes.
Clinical Indicators:
Pt admitted with CHpEF exacerbation s/p CABGx2/AVR/MVR on 07/10
Progress note 07/10, ' Acute on chronic diastolic congestive heart failure with respiratory failure requiring IV diuresis...'
Pt extubated 07/11 @
Patient care note 07/11 @ ,' pt extubated at 0130 to 6 LPM NC but was placed on a NRBM due to mouth-breathing. Pt has poor mentation, poor cough effort and confused speech..'
Patient care note 07/11@ 1216,' POX 100% on Bipap , 10L....'
PH on ABG 07/12 7.30
07/13/23
01:19 07/13/23
01:26 07/13/23
01:45
Pulse 132
Resp Rate 43
SaO2 85
07/13/23
01:50 07/13/23
01:55 07/13/23
02:00
Pulse 126
Resp Rate 34 39
SaO2 72
07/13/23
02:10 07/13/23
02:15
Pulse 119
Resp Rate 29 28
SaO2 83
Clarify which of the following accurately represents the type/acuity of documented respiratory failure :
Acute hypoxic respiratory failure
Acute Hypercapnic respiratory failure
Other
Additional information for Respiratory Failure:
Recognized criteria for Respiratory Failure (Source: [facility] Dec 2012)
ABGs: (1 or more) Symptoms Please indicate type if known
1. p)2 <60 or RA SPO2 <91% on RA 1. Tachypnea, SOB, dyspnea Hypoxic
2. pCO2 50 and pH <7.35 2. Use of accessory muscles Hypercapnic
3. pO2 decrease of pCO2 increase by 3. Pallor or cyanosis Hypoxic and Hypercapnic
10 mmHg from baseline if known 4. Anxiety or restlessness Unable to determine
5. Unable to speak in full sentences
Supplemental O2 of > 40% (5LPM) Intubation is not required
Use of terms such as suspected, likely, concern for, or probable (associated with a specific diagnosis that is being evaluated, monitored, or treated as if it exists) are acceptable and can be coded in the inpatient setting, when documented at the
time of discharge.
Thank you,
Jayshree Lorenzana RN
CDI Specialist
[place] [facility]
Please use your independent medical judgment in providing your response.
--- NOTE | 2023-07-18 12:33 | PN.CDI ---
Addendum entered and electronically signed by Sawyer Clark PA-C 07/18/23 13:19:
Pt with cardiogenic shock
Original Note:
CDI
- -
CDI:
Physician Documentation Request
Admit Date: 07/07/23 09:29
Dear Doctor/CVPA,
Please review the following and provide your response in the progress notes.
Current documentation includes a diagnosis of hypotension.
Clinical Indicators:
Pt admitted with CHpEF exacerbation s/p CABGx2/AVR/MVR on 07/10
Progress note 07/11, '-transient hypotension 70s-80s- required Levo 14-20. Started 25% Albumin x 3...- Acute postop hypovolemia...ABHIJEET...'
Patent care note 07/10 @ 1832, ' BP supported with levophed and epi gtts. PA pressures 70s/40s (Dr. Reynoso aware)...'
Patient care note 07/10@ 2300,' unable to wean Levo gtt, currently infusing @ 12mcg, SBP 90's...'
Patient care note 07/11@ 2004,' Patient is receiving the following gtts: Levo@10, Vaso@0.04, Epi @3, Cordis/VIP KVO...'
07/12/23
19:55 07/12/23
21:03 07/12/23
21:05
MAP (O-Dzmp-Utbaodq Monitor) 51 52 55
07/12/23
22:05 07/13/23
01:09 07/13/23
01:40
MAP (C-Snhz-Muilmag Monitor) 57 50 49
07/13/23
02:00 07/13/23
02:10
MAP (E-Nouq-Txtjxlb Monitor) 43 37
Please clarify which of the following is the most likely etiology of the above symptoms and treatment rendered/(Pressors) :
Cardiogenic shock
Hypovolemic shock - indicate if due to surgery other etiology
Hypotension only
Other
Use of terms such as suspected, likely, concern for, or probable (associated with a specific diagnosis that is being evaluated, monitored, or treated as if it exists) are acceptable and can be coded in the inpatient setting, when documented at the
time of discharge.
Thank you,
Jayshree Lorenzana RN
CDI Specialist
[place] [facility]
Please use your independent medical judgment in providing your response.
--- NOTE | 2023-07-18 12:44 | PN.CDI ---
Addendum entered and electronically signed by Sawyer Clark PA-C 07/18/23 13:27:
Pt with metabolic encephalopathy
Original Note:
CDI
- -
CDI:
Physician Documentation Request
Admit Date: 07/07/23 09:29
Dear Doctor /CVPA,
Please review the following and provide your response in the progress notes.
Clinical Indicators:
Pt admitted with CHpEF exacerbation s/p CABGx2/AVR/MVR on 07/10 /ABHIJEET preop worsening post op
Pt developed metabolic/lactic acidosis HD cath placed for CRRT
Update note 07/12,' multi system organ failure this morning with shock liver, acute renal failure, continued severe pulmonary hypertension, and progressive respiratory failure. ...His medications were changed with uptitration of vasopressing,
addition of inotropic support, and insertion of a temporary dialysis line. CRRT was initiated given the continued worsening acidosis as well as evidence of hyperkalemia. ....he became increasingly agitated, and had only small improvement in his
metabolic state. His hypotension started to progress along with agitation. He become unresponsive and progressed into cardiopulmonary collapse/arrest. ...'
Patient care note 07/12 @ 0030,' Patient increasingly agitated/restless. Attempting to pull off Bipap. Patient reports that they feel trapped and want to get up. CT PA advised. Received orders to resume precedex gtt at 0.2. ...:'
Based on the above, could you clarify in the Progress Notes and Discharge Summary which, if any of the following, is the most likely etiology of the confusion/altered mental status.
Metabolic Encephalopathy
Toxic Metabolic encephalopathy
Confusion only
Other
Use of terms such as suspected, likely, concern for, or probable (associated with a specific diagnosis that is being evaluated, monitored, or treated as if it exists) are acceptable and can be coded in the inpatient setting, when documented at the
time of discharge.
Thank you,
Jayshree Lorenzana RN
CDI Specialist
[place] [employer]
Please use your independent medical judgment in providing your response.
== END 2023-07-13 02:30 | disposition expired | DRG 212 ==
LOC: CVICU 09:29
PROVIDERS: Anesthesiology; Clinical Nurse Specialist Acute Care; Hospitalist; Internal Medicine Cardiovascular Disease; Internal Medicine Interventional Cardiology; Nurse Practitioner Adult Health; Physician Assistant Medical; Physician Assistant Surgical; Radiology Vascular & Interventional Radiology; ADMITTING PHYSICIAN Hospitalist; ATTENDING PHYSICIAN Thoracic Surgery (Cardiothoracic Vascular Surgery); CONSULT PHYSICIAN Internal Medicine; FAMILY PHYSICIAN Family Medicine
PROC: 5A09357 Assistance with Respiratory Ventilation, Less than 24 Consecutive Hours, Continuous Positive Airway Pressure (ICD-10-PCS; 2023-07-07)
PROC: 4A023N8 Measurement of Cardiac Sampling and Pressure, Bilateral, Percutaneous Approach (ICD-10-PCS; 2023-07-07)
PROC: B2111ZZ Fluoroscopy of Multiple Coronary Arteries using Low Osmolar Contrast (ICD-10-PCS; 2023-07-07)
PROC: 5A1221Z Performance of Cardiac Output, Continuous (ICD-10-PCS; 2023-07-11)
PROC: 02NN0ZZ Release Pericardium, Open Approach (ICD-10-PCS; 2023-07-11)
PROC: 06BP4ZZ Excision of Right Saphenous Vein, Percutaneous Endoscopic Approach (ICD-10-PCS; 2023-07-11)
PROC: 02RF0JZ Replacement of Aortic Valve with Synthetic Substitute, Open Approach (ICD-10-PCS; 2023-07-11)
PROC: B24BZZ4 Ultrasonography of Heart with Aorta, Transesophageal (ICD-10-PCS; 2023-07-11)
PROC: 02100Z9 Bypass Coronary Artery, One Artery from Left Internal Mammary, Open Approach (ICD-10-PCS; 2023-07-11)
PROC: 021009W Bypass Coronary Artery, One Artery from Aorta with Autologous Venous Tissue, Open Approach (ICD-10-PCS; 2023-07-11)
PROC: 02RG0JZ Replacement of Mitral Valve with Synthetic Substitute, Open Approach (ICD-10-PCS; 2023-07-11)
PROC: 5A1D90Z Performance of Urinary Filtration, Continuous, Greater than 18 hours Per Day (ICD-10-PCS; 2023-07-12)
PROC: 30233K1 Transfusion of Nonautologous Frozen Plasma into Peripheral Vein, Percutaneous Approach (ICD-10-PCS; 2023-07-12)
PROC: 02HV33Z Insertion of Infusion Device into Superior Vena Cava, Percutaneous Approach (ICD-10-PCS; 2023-07-12)
PROC: 02H63JZ Insertion of Pacemaker Lead into Right Atrium, Percutaneous Approach (ICD-10-PCS; 2023-07-12)
PROC: 0JH606Z Insertion of Pacemaker, Dual Chamber into Chest Subcutaneous Tissue and Fascia, Open Approach (ICD-10-PCS; 2023-07-12)
PROC: 02HK3JZ Insertion of Pacemaker Lead into Right Ventricle, Percutaneous Approach (ICD-10-PCS; 2023-07-12)
PROC: 0BH17EZ Insertion of Endotracheal Airway into Trachea, Via Natural or Artificial Opening (ICD-10-PCS; 2023-07-13)
DX: T82.857A Stenosis of other cardiac prosthetic devices, implants and grafts, initial encounter (principal); I50.33 Acute on chronic diastolic (congestive) heart failure; T81.11XA Postprocedural cardiogenic shock, initial encounter; G93.41 Metabolic encephalopathy; J96.01 Acute respiratory failure with hypoxia; I44.2 Atrioventricular block, complete; Z68.42 Body mass index [BMI] 45.0-49.9, adult; I31.0 Chronic adhesive pericarditis; E87.20 Acidosis, unspecified; D62 Acute posthemorrhagic anemia; J98.11 Atelectasis; N17.9 Acute kidney failure, unspecified; I08.0 Rheumatic disorders of both mitral and aortic valves; E66.01 Morbid (severe) obesity due to excess calories; G47.33 Obstructive sleep apnea (adult) (pediatric); I11.0 Hypertensive heart disease with heart failure; E78.00 Pure hypercholesterolemia, unspecified; J44.89 Other specified chronic obstructive pulmonary disease; I46.2 Cardiac arrest due to underlying cardiac condition; I25.10 Atherosclerotic heart disease of native coronary artery without angina pectoris; H35.30 Unspecified macular degeneration; Y83.1 Surgical operation with implant of artificial internal device as the cause of abnormal reaction of the patient, or of later complication, without mention of misadventure at the time of the procedure; K72.90 Hepatic failure, unspecified without coma; E87.5 Hyperkalemia; E11.51 Type 2 diabetes mellitus with diabetic peripheral angiopathy without gangrene; I27.20 Pulmonary hypertension, unspecified; K21.9 Gastro-esophageal reflux disease without esophagitis; Z79.82 Long term (current) use of aspirin; Z79.899 Other long term (current) drug therapy; Z82.49 Family history of ischemic heart disease and other diseases of the circulatory system
CPT/HCPCS: 88300; 93308; 33208; 36556; 70355; 71045; 71046; 71250; 71275; 74018; 74174; 76937; 80048; 80053; 80061; 80076; 81003; 81015; 82248; 82330; 82565; 82805; 82810; 82947; 82962; 83036; 83605; 83615; 83735; 83935; 84132; 84302; 84443; 84520; 85014; 85018; 85027; 85049; 85610; 85730; 86850; 86900; 86901; 86920; 93005; 93312; 93320; 93325; 93456; 93880; 93970; 94002; 94003; 94060; 94640; 94660; 99152; 99153; C1750; C1769; C1785; C1887; C1892; C1894; C1898; J1325; J2260; J2916; P9045; P9047; P9059; Q9950; Q9967